=== PATIENT | female | born 1985 | race Caucasian/White ===

== ENCOUNTER 2018-03-18 00:09 | Inpatient (IN) | payer OTHER ==
[2018-03-18] MEDS ORDERED: Sodium Chloride 0.9% 2.5 ML Syringe FLUSH PRN (00:26)
[2018-03-18] MEDS ORDERED: Water For Irrigation,Sterile 1,000 ML Container IRR PRN (00:26)
[2018-03-18] MEDS ORDERED: Methylergonovine 0.2 MG/1 ML Amp IM PRN (00:26)
[2018-03-18] MEDS ORDERED: Tranexamic Acid 1,000 MG in Sodium Chloride 0.9% 100 ML IV PRN (00:26)
[2018-03-18] MEDS ORDERED: Nalbuphine 10 MG/1 ML Vial IVPUSH PRN (00:26)
[2018-03-18] MEDS ORDERED: Terbutaline 1 MG/ML SDV SUBCUT PRN (00:26)
[2018-03-18] MEDS ORDERED: Carboprost Tromethamine 250 MCG/1 ML Amp IM PRN (00:26)
[2018-03-18] MEDS ORDERED: Misoprostol 200 MCG Tab PO PRN (00:26)
[2018-03-18] MEDS ORDERED: Lidocaine 1% 50 ML MDV INJECT PRN (00:26)
[2018-03-18] MEDS ORDERED: Ondansetron 4 MG/2 ML SDV IV PRN (00:26)
[2018-03-18] MEDS ORDERED: Sodium Chloride 0.9% 10 ML Syringe FLUSH PRN (00:26)
[2018-03-18] MEDS ORDERED: Oxytocin/0.9 % Sodium Chloride 30 UNIT/500 ML BAG IV SCH ×2 (00:30)
[2018-03-18] MEDS ORDERED: Vancomycin 1 GM AdvVial ONE (01:48)
[2018-03-18] MEDS ORDERED: Sodium Chloride 0.9% 250 ML ONE (01:50)
[2018-03-18] MEDS: Misoprostol 25 MCG (1/4 of 100 MCG) Tab VAG PRN ×3 (01:50→09:58)
[2018-03-18] MEDS: Lactated Ringers 1,000 ML IV SCH ×2 (02:05→23:45)
[2018-03-18] MEDS: Butorphanol 1 MG/ML SDV IVPUSH PRN ×2 (14:33→16:12)
[2018-03-19] MEDS: Lactated Ringers 1,000 ML IV SCH ×2 (00:39→08:24)
--- NOTE | 2018-03-19 01:03 | PCM.PREANE ---
Preanesthetic Assessment - Anesthesia/Transfusion/Family Hx Anesthesia History: Prior Anesthesia Without Reaction Family History of Anesthesia Reaction: No Transfusion History: No Prior Transfusion(s) - Review of Systems General: No Symptoms Pulmonary: No Symptoms Cardiovascular: No Symptoms Gastrointestinal: No Symptoms Neurological: No Symptoms Other: Reports: None (Denies any personal or family history of bleeding or clotting problems) - Physical Assessment Height: 1.73 m Weight: 102.682 kg ASA Class: 2 Mental Status: Alert & Oriented x3 Airway Class: Mallampati = 2 ROM/Head Extension: Full - Lab Values: Laboratory Last Values WBC 11.78 K/uL (4.0-11.0) H 03/18/18 01:20 RBC 3.86 M/uL (4.30-5.90) L 03/18/18 01:20 Hgb 12.3 g/dL (12.0-16.0) 03/18/18 01:20 Hct 36.6 % (36.0-46.0) 03/18/18 01:20 MCV 94.8 fL (80.0-98.0) 03/18/18 01:20 MCH 31.9 pg (27.0-32.0) 03/18/18 01:20 MCHC 33.6 g/dL (31.0-37.0) 03/18/18 01:20 RDW Std Deviation 48.8 fl (28.0-62.0) 03/18/18 01:20 RDW Coeff of Nadege 15 % (11.0-15.0) 03/18/18 01:20 Plt Count 164 K/uL (150-400) 03/18/18 01:20 MPV 11.60 fL (7.40-12.00) 03/18/18 01:20 Blood Type O NEGATIVE 03/18/18 01:20 Antibody Screen NEGATIVE 03/18/18 01:20 - Allergies Allergies/Adverse Reactions: Allergies Allergy/AdvReac Type Severity Reaction Status Date / Time cat dander Allergy Unknown Cannot Verified 03/18/18 06:21 Remember dog dander Allergy Unknown Cannot Verified 03/18/18 06:21 Remember Penicillins Allergy Unknown Cannot Verified 03/18/18 06:21 Remember - Acknowledgements Anesthesia Type Planned: Epidural Pt an Appropriate Candidate for the Planned Anesthesia: Yes Alternatives and Risks of Anesthesia Discussed w Pt/Guardian: Yes Pt/Guardian Understands and Agrees with Anesthesia Plan: Yes Additional Comments: States has read and signed the anesthesia consent and accepts risks associated with epidural PreAnesthesia Questionnaire Respiratory History: Reports: Asthma [employer] History: Reports: , Other (See Below) Other OB/BYN History: LEEP Psychiatric History: Reports: Anxiety, Depression - Past Surgical History HEENT Surgical History: Reports: Other (See Below) Other HEENT Surgeries/Procedures: [place] teeth extraction - SUBSTANCE USE Smoking Status *Q: Former Smoker Tobacco Use Within Last Twelve Months: No Second Hand Smoke Exposure: No Recreational Drug Use History: No - HOME MEDS Home Medications: Home Meds Albuterol/Ipratropium [Combivent Respimat] 1 puff INH Q6H PRN 03/18/18 [History] Calcium Carbonate [Calcium] 1 tab PO DAILY 03/18/18 [History] Magnesium Oxide 1 tab PO DAILY 03/18/18 [History] Vit W-Ca,Fe,FA(<1 mg) [ Vitamins] 1 each PO DAILY 03/18/18 [ History] Vitamin B Complex 1 cap PO DAILY 03/18/18 [History] valACYclovir HCl [valACYclovir] 1 tab PO DAILY 03/18/18 [History] - CURRENT (IN HOUSE) MEDS Current Meds: Current Medications Butorphanol Tartrate (Stadol) 1 mg IVPUSH Q1H PRN PRN Reason: Pain Last Admin: 03/18/18 16:12 Dose: 1 mg Carboprost Tromethamine (Hemabate Ds) 250 mcg IM ASDIRECTED PRN PRN Reason: Post Hemorrhage Lactated Ringer's (Ringers, Lactated) 1,000 mls @ 150 mls/hr IV ASDIRECTED [facility] Last Admin: 03/19/18 00:39 Dose: 500 mls/hr Oxytocin/Sodium Chloride (Oxytocin 30 Unit/500 Ml-Ns) 30 unit in 500 mls @ 250 mls/hr IV TITRATE [facility] Oxytocin/Sodium Chloride (Oxytocin 30 Unit/500 Ml-Ns) 30 unit in 500 mls @ 2 mls/hr IV TITRATE [facility]; Protocol Last Admin: 03/19/18 00:22 Dose: 2 munits/min, 2 mls/hr Tranexamic Acid 1,000 mg/ (Sodium Chloride) 110 mls @ 660 mls/hr IV ONETIME PRN PRN Reason: Bleeding Vancomycin HCl 1 gm/ Sodium (Chloride) 250 mls @ 250 mls/hr IV Q12H [facility] Last Admin: 03/18/18 14:38 Dose: 250 mls/hr Lidocaine HCl (Xylocaine 1%) 50 ml INJECT ONETIME PRN PRN Reason: Laceration repair Methylergonovine Maleate (Methergine) 0.2 mg IM ASDIRECTED PRN PRN Reason: Post Hemorrhage Misoprostol (Cytotec) 200 mcg PO ONETIME PRN PRN Reason: Post Hemorrhage Misoprostol (Cytotec) 25 mcg VAG Q4H PRN PRN Reason: Cervical Ripening Last Admin: 03/18/18 09:58 Dose: 25 mcg Nalbuphine HCl (Nubain) 10 mg IVPUSH Q1H PRN PRN Reason: Pain (severe 7-10) Ondansetron HCl (Zofran) 4 mg IV Q6H PRN PRN Reason: Nausea/Vomiting Sodium Chloride (Saline Flush) 10 ml FLUSH ASDIRECTED PRN PRN Reason: Keep Vein Open Sodium Chloride (Saline Flush) 2.5 ml FLUSH ASDIRECTED PRN PRN Reason: Keep Vein Open Sterile Water (Sterile Water For Irrigation) 1,000 ml IRR ASDIRECTED PRN PRN Reason: delivery Terbutaline Sulfate (Brethine) 0.25 mg SUBCUT ASDIRECTED PRN PRN Reason: Tacysystole Discontinued Medications Vancomycin HCl 1 gm/ Sodium (Chloride) 250 mls @ 166 mls/hr IV Q12H [facility] Last Admin: 03/18/18 06:22 Dose: Not Given Sodium Chloride (Normal Saline) Confirm Administered Dose 250 mls @ as directed .ROUTE .STK-MED ONE Stop: 03/18/18 01:51 Last Admin: 03/18/18 06:23 Dose: Not Given Fentanyl/Bupivacaine HCl (Zopnmyun-Zdlph-Ul 2 Mcg/Ml-0.125%) Confirm Administered Dose 100 mls @ as directed EP .STK-MED ONE Stop: 03/19/18 00:06 Vancomycin HCl (Vancocin) Confirm Administered Dose 1 gm .ROUTE .STK-MED ONE Stop: 03/18/18 01:49 Last Admin: 03/18/18 02:05 Dose: 1 gm
[2018-03-19] MEDS ORDERED: DEXTROSE 5% IV SCH ×2 (15:29)
[2018-03-19] MEDS ORDERED: WATER IV SCH ×2 (15:29)
[2018-03-19] MEDS ORDERED: GENTAMICIN IV SCH ×2 (15:29)
[2018-03-19] MEDS ORDERED: Bupivacaine 0.5% 10 ML SDV ONE ×2 (15:48→16:33)
[2018-03-19] MEDS ORDERED: Oxytocin/0.9 % Sodium Chloride 30 UNIT/500 ML BAG ONE (15:55)
[2018-03-19] MEDS ORDERED: Sodium Chloride 0.9% 10 ML Syringe FLUSH PRN (16:12)
[2018-03-19] MEDS ORDERED: Citric Acid/Sodium Citrate Solution 30 ML Cup PO ONE (16:12)
[2018-03-19] MEDS ORDERED: Lactated Ringers 1,000 ML IV SCH ×2 (16:15→18:30)
[2018-03-19] MEDS ORDERED: Oxytocin/0.9 % Sodium Chloride 30 UNIT/500 ML BAG IV SCH (16:15)
[2018-03-19] MEDS ORDERED: Midazolam 1 MG/ML 2 ML SDV ONE (16:52)
[2018-03-19] MEDS ORDERED: Morphine PF 1 MG/ML Amp ONE (16:53)
[2018-03-19] MEDS ORDERED: Phenylephrine/Normal Saline 100 MCG/ML 10 ML Syringe ONE (17:10)
[2018-03-19] MEDS ORDERED: Methylergonovine 0.2 MG/1 ML Amp ONE (17:12)
[2018-03-19] MEDS ORDERED: diphenhydrAMINE 50 MG/ML SDV IVPUSH PRN ×2 (17:17→18:18)
[2018-03-19] MEDS ORDERED: Naloxone 0.4 MG/ML Syringe IVPUSH PRN (17:17)
[2018-03-19] MEDS ORDERED: Nalbuphine 10 MG/1 ML Vial IVPUSH PRN (17:17)
[2018-03-19] MEDS ORDERED: fentaNYL 100 MCG/2 ML SDV ONE (17:17)
[2018-03-19] MEDS ORDERED: diphenhydrAMINE 50 MG/ML SDV ONE (17:34)
[2018-03-19] MEDS ORDERED: Ondansetron 4 MG/2 ML SDV ONE (17:34)
[2018-03-19] MEDS ORDERED: Dexamethasone 4 MG/ML 5 ML MDV ONE (17:34)
[2018-03-19] MEDS ORDERED: Ondansetron 4 MG/2 ML SDV IV PRN (18:18)
[2018-03-19] MEDS ORDERED: Bisacodyl 10 MG Supp RECTAL PRN (18:18)
[2018-03-19] MEDS ORDERED: Acetaminophen/oxyCODONE 325-5 MG Tab PO PRN (18:18)
--- NOTE | 2018-03-19 18:26 | PCM.POSTAN ---
POST ANESTHESIA ASSESSMENT - MENTAL STATUS Mental Status: Alert, Oriented - RESPIRATORY Respiratory Status: Respiratory Rate WNL, Airway Patent, O2 Saturation Stable - CARDIOVASCULAR CV Status: Pulse Rate WNL, Blood Pressure Stable - GASTROINTESTINAL GI Status: No Symptoms - PAIN Pain Score: 0 - POST OP HYDRATION Hydration Status: Adequate & Stable
--- NOTE | 2018-03-19 18:29 | PCM.DEL ---
L & D Note - General Info Date of Service: 03/19/18 - Delivery Note Labor: Induced by Oxytocin Cervical Ripening Method: Balloon Device, Misoprostil Delivery Outcome: Livebirth Infant Delivery Method: Primary Presentation: Transverse Nuchal Cord: None Anesthesia Type: Epidural Amniotic Fluid Description: Clear Episiotomy Type: None : Bulb Syringe Score 1 min: 8 Score 5 min: 9 Delivery Comments (Free Text/Narrative):: Live female delivered at 5.03pm , 8/9 weight ; 3920g - General Info Date of Service: 03/19/18 - Patient Data Vitals - Most Recent: Last Vital Signs Temp 37.1 C 03/19/18 17:57 Pulse 83 03/19/18 18:17 Resp 13 03/19/18 18:17 BP 126/76 03/19/18 18:17 Pulse Ox 95 03/19/18 18:17 Weight - Most Recent: 102.682 kg I&O - Last 24 Hours: Intake & Output 03/19/18 03/19/18 03/19/18 06:59 14:59 22:59 Output Total 200 Balance -200 Lab Results Last 24 Hours: Laboratory Results - last 24 hr 03/18/18 Range/Units 01:20 Blood Type O NEGATIVE Antibody Screen NEGATIVE Crossmatch See Detail Med Orders - Current: Current Medications Bisacodyl (Dulcolax) 10 mg RECTAL ONETIME PRN PRN Reason: Constipation Butorphanol Tartrate (Stadol) 1 mg IVPUSH Q1H PRN PRN Reason: Pain Last Admin: 03/18/18 16:12 Dose: 1 mg Carboprost Tromethamine (Hemabate Ds) 250 mcg IM ASDIRECTED PRN PRN Reason: Post Hemorrhage Diphenhydramine HCl (Benadryl) 25 mg IVPUSH Q4H PRN PRN Reason: Itching Stop: 03/20/18 17:17 Diphenhydramine HCl (Benadryl) 25 mg IVPUSH Q6H PRN PRN Reason: Itching or Nausea Docusate Sodium (Colace) 100 mg PO BID [facility] Emollient Ointment (Lansinoh Hpa) 0 gm TOP ASDIRECTED PRN PRN Reason: Sore Nipples Lactated Ringer's (Ringers, Lactated) 1,000 mls @ 150 mls/hr IV ASDIRECTED [facility] Last Admin: 03/19/18 08:24 Dose: 125 mls/hr Oxytocin/Sodium Chloride (Oxytocin 30 Unit/500 Ml-Ns) 30 unit in 500 mls @ 250 mls/hr IV TITRATE [facility] Oxytocin/Sodium Chloride (Oxytocin 30 Unit/500 Ml-Ns) 30 unit in 500 mls @ 2 mls/hr IV TITRATE [facility]; Protocol Last Titration: 03/19/18 15:20 Dose: 0 munits/min, 0 mls/hr Tranexamic Acid 1,000 mg/ (Sodium Chloride) 110 mls @ 660 mls/hr IV ONETIME PRN PRN Reason: Bleeding Vancomycin HCl 1 gm/ Sodium (Chloride) 250 mls @ 250 mls/hr IV Q12H [facility] Last Admin: 03/19/18 02:08 Dose: 250 mls/hr Gentamicin Sulfate 100 mg/ (Dextrose/Water) 52.5 mls @ 105 mls/hr IV ONCALL [facility] Oxytocin/Sodium Chloride (Oxytocin 30 Unit/500 Ml-Ns) 30 unit in 500 mls @ 250 mls/hr IV TITRATE [facility] Lactated Ringer's (Ringers, Lactated) 1,000 mls @ 500 mls/hr IV BOLUS [facility] Lactated Ringer's (Ringers, Lactated) 1,000 mls @ 125 mls/hr IV ASDIRECTED [facility] Ibuprofen (Motrin) 800 mg PO Q8H PRN PRN Reason: mild pain or fever Ketorolac Tromethamine (Toradol) 30 mg IVPUSH Q6H [facility] Stop: 03/20/18 18:31 Lidocaine HCl (Xylocaine 1%) 50 ml INJECT ONETIME PRN PRN Reason: Laceration repair Methylergonovine Maleate (Methergine) 0.2 mg IM ASDIRECTED PRN PRN Reason: Post Hemorrhage Misoprostol (Cytotec) 200 mcg PO ONETIME PRN PRN Reason: Post Hemorrhage Misoprostol (Cytotec) 25 mcg VAG Q4H PRN PRN Reason: Cervical Ripening Last Admin: 03/18/18 09:58 Dose: 25 mcg Nalbuphine HCl (Nubain) 5 mg IVPUSH Q3H PRN PRN Reason: Pruritis Stop: 03/20/18 17:17 Naloxone HCl (Narcan) 0.1 mg IVPUSH ONETIME PRN PRN Reason: Respiratory Depression Stop: 03/20/18 17:17 Ondansetron HCl (Zofran) 4 mg IV Q6H PRN PRN Reason: Nausea/Vomiting Ondansetron HCl (Zofran) 4 mg IV Q4H PRN PRN Reason: Nausea/Vomiting Oxycodone/Acetaminophen (Percocet 325-5 Mg) 1 tab PO Q4H PRN PRN Reason: Pain (moderate 4-6) Oxycodone/Acetaminophen (Percocet 325-5 Mg) 2 tab PO Q4H PRN PRN Reason: Pain (moderate 4-6) Sodium Chloride (Saline Flush) 10 ml FLUSH ASDIRECTED PRN PRN Reason: Keep Vein Open Sodium Chloride (Saline Flush) 2.5 ml FLUSH ASDIRECTED PRN PRN Reason: Keep Vein Open Sodium Chloride (Saline Flush) 10 ml FLUSH ASDIRECTED PRN PRN Reason: Keep Vein Open Sterile Water (Sterile Water For Irrigation) 1,000 ml IRR ASDIRECTED PRN PRN Reason: delivery Discontinued Medications Bupivacaine HCl (Sensorcaine-Mpf 0.5%) Confirm Administered Dose 20 ml .ROUTE .STK-MED ONE Stop: 03/19/18 15:49 Bupivacaine HCl (Sensorcaine-Mpf 0.5%) Confirm Administered Dose 20 ml .ROUTE .STK-MED ONE Stop: 03/19/18 16:34 Citric Acid/Sodium Citrate (Bicitra Solution) 30 ml PO ONETIME ONE Stop: 03/19/18 16:13 Dexamethasone (Dexamethasone) Confirm Administered Dose 20 mg .ROUTE .STK-MED ONE Stop: 03/19/18 17:35 Diphenhydramine HCl (Benadryl) Confirm Administered Dose 50 mg .ROUTE .STK-MED ONE Stop: 03/19/18 17:35 Fentanyl (Sublimaze) Confirm Administered Dose 100 mcg .ROUTE .STK-MED ONE Stop: 03/19/18 17:18 Vancomycin HCl 1 gm/ Sodium (Chloride) 250 mls @ 166 mls/hr IV Q12H [facility] Last Admin: 03/19/18 02:08 Dose: 250 mls/hr Sodium Chloride (Normal Saline) Confirm Administered Dose 250 mls @ as directed .ROUTE .STK-MED ONE Stop: 03/18/18 01:51 Last Admin: 03/18/18 06:23 Dose: Not Given Fentanyl/Bupivacaine HCl (Krtegfpi-Rozry-If 2 Mcg/Ml-0.125%) Confirm Administered Dose 100 mls @ as directed EP .STK-MED ONE Stop: 03/19/18 00:06 Fentanyl/Bupivacaine HCl (Nazxerhx-Mdycv-On 2 Mcg/Ml-0.125%) Confirm Administered Dose 100 mls @ as directed EP .STK-MED ONE Stop: 03/19/18 11:14 Oxytocin/Sodium Chloride (Oxytocin 30 Unit/500 Ml-Ns) Confirm Administered Dose 30 unit in 500 mls @ as directed .ROUTE .STK-MED ONE Stop: 03/19/18 15:56 Methylergonovine Maleate (Methergine) Confirm Administered Dose 0.2 mg .ROUTE .STK-MED ONE Stop: 03/19/18 17:13 Midazolam HCl (Versed 1 Mg/Ml) Confirm Administered Dose 2 mg .ROUTE .STK-MED ONE Stop: 03/19/18 16:53 Morphine Sulfate (Duramorph Pf) Confirm Administered Dose 1 mg .ROUTE .STK-MED ONE Stop: 03/19/18 16:54 Nalbuphine HCl (Nubain) 10 mg IVPUSH Q1H PRN PRN Reason: Pain (severe 7-10) Ondansetron HCl (Zofran) Confirm Administered Dose 4 mg .ROUTE .STK-MED ONE Stop: 03/19/18 17:35 Phenylephrine HCl (Phenylephrine In Ns 100 Mcg/Ml) Confirm Administered Dose 1 mg .ROUTE .STK-MED ONE Stop: 03/19/18 17:11 Terbutaline Sulfate (Brethine) 0.25 mg SUBCUT ASDIRECTED PRN PRN Reason: Tacysystole Vancomycin HCl (Vancocin) Confirm Administered Dose 1 gm .ROUTE .STK-MED ONE Stop: 03/18/18 01:49 Last Admin: 03/18/18 02:05 Dose: 1 gm - Problem List & Annotations (1) delivery delivered SNOMED Code(s): 628958418 Code(s): O82 - ENCOUNTER FOR DELIVERY WITHOUT INDICATION Status: Acute Current Visit: Yes - Problem List Review Problem List Initiated/Reviewed/Updated: Yes - My Orders Last 24 Hours: My Active Orders 03/19/18 15:29 Gentamicin 100 mg Dextrose 5% in Water 50 ml IV ONCALL 03/19/18 16:12 Patient Status [ADT] Routine Non Stress Test [RC] PER UNIT ROUTINE Procedure Site Prep Instruct [RC] ASDIRECTED Up ad Isabel [RC] ASDIRECTED Verify Patient Consent Obtain [RC] ASDIRECTED Vital Signs [RC] PER UNIT ROUTINE Sodium Chloride 0.9% [Saline Flush] 10 ml FLUSH ASDIRECTED PRN Peripheral IV Insertion Adult [OM.PC] Routine Schedule Procedure [COMM] Per Unit Routine 03/19/18 16:15 Lactated Ringers [Ringers, Lactated] 1,000 ml IV BOLUS Oxytocin/0.9 % Sodium Chloride [Oxytocin 30 Unit/500 ML-NS] 30 unit in 500 ml IV TITRATE 03/19/18 16:20 Notify Provider Vital Signs [RC] PRN 03/19/18 18:18 Notify Provider Intake and Out [RC] ASDIRECTED Notify Provider Vital Signs [RC] ASDIRECTED RHIG WORKUP, [BBK] Routine Acetaminophen/oxyCODONE [Percocet 325-5 MG] 1 tab PO Q4H PRN Acetaminophen/oxyCODONE [Percocet 325-5 MG] 2 tab PO Q4H PRN Bisacodyl [Dulcolax] 10 mg RECTAL ONETIME PRN Ibuprofen [Motrin] 800 mg PO Q8H PRN Lanolin [Lansinoh HPA] See Dose Instructions TOP ASDIRECTED PRN Ondansetron [Zofran] 4 mg IV Q4H PRN diphenhydrAMINE [Benadryl] 25 mg IVPUSH Q6H PRN Resuscitation Status Routine 03/19/18 18:20 Patient Status [ADT] Routine Ambulate [RC] PER UNIT ROUTINE Communication Order [RC] PER UNIT ROUTINE Communication Order [RC] PER UNIT ROUTINE Communication Order [RC] Per Unit Routine May Shower [RC] ASDIRECTED RT Incentive Spirometry [RC] Q2HWA Vital Signs [RC] PER UNIT ROUTINE Assess Lochia [WOMSER] Per Unit Routine Assess Uterine Involution [WOMSER] Per Unit Routine Breast Pump [WOMSER] Per Unit Routine Peripheral IV Discontinue [OM.PC] Routine Sequential Compression Device [OM.PC] Per Unit Routine 03/19/18 18:21 Abdominal Binder [OM.PC] Per Unit Routine 03/19/18 18:30 Ketorolac [Toradol] 30 mg IVPUSH Q6H Lactated Ringers @ 125 MLS/HR(1000ml) Lactated Ringers [Ringers, Lactated] 1, 000 ml IV ASDIRECTED 03/19/18 21:00 Docusate Sodium [Colace] 100 mg PO BID 03/19/18 Breakfast Regular Diet [DIET] 03/20/18 05:11 HEMOGLOBIN/HEMATOCRIT,HH [HEME] Timed
--- NOTE | 2018-03-19 18:38 | PCM.OPNOTE ---
- General Post-Op/Procedure Note Date of Surgery/Procedure: 03/19/18 Operative Procedure(s): Primary lower transverse Pre Op Diagnosis: 32 yo @ 41w0d Failed induction of labor , GBS positive Post-Op Diagnosis: same Anesthesia Technique: Epidural Primary Surgeon: Steven Palma Pathology: Placenta Fluid Replacement, Intraop: 1,100 Output, Urine Amount: 250 EBL in mLs: 1,200 Complications: None Condition: Good Free Text/Narrative:: Intake & Output 03/19/18 03/19/18 03/19/18 06:59 14:59 22:59 Output Total 200 Balance -200 Live female delivered at 503pm , Wt 3920g , 8/9
[2018-03-19] MEDS: Ketorolac 30 MG/ML SDV IVPUSH SCH (19:30)
[2018-03-19] MEDS: Lanolin 100% Cream 7 GM Tube TOP PRN (20:12)
[2018-03-19] MEDS: Docusate Sodium 100 MG Cap PO SCH (20:13)
[2018-03-20] MEDS: Lactated Ringers 1,000 ML IV SCH (01:00)
[2018-03-20] MEDS: Ketorolac 30 MG/ML SDV IVPUSH SCH ×4 (01:22→19:30)
--- NOTE | 2018-03-20 05:18 | PCM48HPAN ---
Post Anesthesia Note - EVALUATION WITHIN 48HRS OF ANESTHETIC Vital Signs in Normal Range: Yes Patient Participated in Evaluation: Yes Respiratory Function Stable: Yes Airway Patent: Yes Cardiovascular Function Stable: Yes Hydration Status Stable: Yes Pain Control Satisfactory: Yes Nausea and Vomiting Control Satisfactory: Yes Mental Status Recovered: Yes Resp Rate: 16
--- NOTE | 2018-03-20 08:15 | PCM.PNPP ---
- General Info Date of Service: 03/20/18 Functional Status: Reports: Pain Controlled, Tolerating Diet, Ambulating, Urinating - Review of Systems General: Denies: Fever HEENT: Denies: Headaches Pulmonary: Denies: Shortness of Breath, Pleuritic Chest Pain, Cough Cardiovascular: Denies: Chest Pain, Palpitations, Dyspnea on Exertion Gastrointestinal: Denies: Abdominal Pain Genitourinary: Denies: Flank Pain - General Info Date of Service: 03/20/18 - Patient Data Vital Signs - Most Recent: Last Vital Signs Temp 36.1 C 03/20/18 00:00 Pulse 92 03/20/18 07:00 Resp 18 03/20/18 07:00 BP 129/76 03/20/18 00:00 Pulse Ox 97 03/20/18 07:00 Weight - Most Recent: 226 lb 6.001 oz I&O - Last 24 Hours: Intake & Output 03/19/18 03/20/18 03/20/18 22:59 06:59 14:59 Intake Total 3150 1650 Output Total 570 1550 Balance 2580 100 Lab Results - Last 24 Hours: Laboratory Results - last 24 hr 03/18/18 03/19/18 03/20/18 Range/Units 01:20 17:03 06:00 Hgb 9.3 L (12.0-16.0) g/dL Hct 28.0 L (36.0-46.0) % Blood Type O NEGATIVE Antibody Screen NEGATIVE Rhogam Indicated NO, MOM+BABY RH NEG Crossmatch See Detail Med Orders - Current: Current Medications Bisacodyl (Dulcolax) 10 mg RECTAL ONETIME PRN PRN Reason: Constipation Butorphanol Tartrate (Stadol) 1 mg IVPUSH Q1H PRN PRN Reason: Pain Last Admin: 03/18/18 16:12 Dose: 1 mg Carboprost Tromethamine (Hemabate Ds) 250 mcg IM ASDIRECTED PRN PRN Reason: Post Hemorrhage Diphenhydramine HCl (Benadryl) 25 mg IVPUSH Q4H PRN PRN Reason: Itching Stop: 03/20/18 17:17 Diphenhydramine HCl (Benadryl) 25 mg IVPUSH Q6H PRN PRN Reason: Itching or Nausea Docusate Sodium (Colace) 100 mg PO BID [facility] Last Admin: 03/19/18 20:13 Dose: 100 mg Emollient Ointment (Lansinoh Hpa) 0 gm TOP ASDIRECTED PRN PRN Reason: Sore Nipples Last Admin: 03/19/18 20:12 Dose: 1 applic Lactated Ringer's (Ringers, Lactated) 1,000 mls @ 150 mls/hr IV ASDIRECTED [facility] Last Admin: 03/20/18 01:00 Dose: 125 mls/hr Oxytocin/Sodium Chloride (Oxytocin 30 Unit/500 Ml-Ns) 30 unit in 500 mls @ 250 mls/hr IV TITRATE [facility] Oxytocin/Sodium Chloride (Oxytocin 30 Unit/500 Ml-Ns) 30 unit in 500 mls @ 2 mls/hr IV TITRATE [facility]; Protocol Last Titration: 03/19/18 15:20 Dose: 0 munits/min, 0 mls/hr Tranexamic Acid 1,000 mg/ (Sodium Chloride) 110 mls @ 660 mls/hr IV ONETIME PRN PRN Reason: Bleeding Vancomycin HCl 1 gm/ Sodium (Chloride) 250 mls @ 250 mls/hr IV Q12H [facility] Last Admin: 03/19/18 02:08 Dose: 250 mls/hr Gentamicin Sulfate 100 mg/ (Dextrose/Water) 52.5 mls @ 105 mls/hr IV ONCALL [facility] Oxytocin/Sodium Chloride (Oxytocin 30 Unit/500 Ml-Ns) 30 unit in 500 mls @ 250 mls/hr IV TITRATE [facility] Lactated Ringer's (Ringers, Lactated) 1,000 mls @ 500 mls/hr IV BOLUS [facility] Lactated Ringer's (Ringers, Lactated) 1,000 mls @ 125 mls/hr IV ASDIRECTED [facility] Ibuprofen (Motrin) 800 mg PO Q8H PRN PRN Reason: mild pain or fever Ketorolac Tromethamine (Toradol) 30 mg IVPUSH Q6H [facility] Stop: 03/20/18 19:31 Last Admin: 03/20/18 07:46 Dose: 30 mg Lidocaine HCl (Xylocaine 1%) 50 ml INJECT ONETIME PRN PRN Reason: Laceration repair Methylergonovine Maleate (Methergine) 0.2 mg IM ASDIRECTED PRN PRN Reason: Post Hemorrhage Misoprostol (Cytotec) 200 mcg PO ONETIME PRN PRN Reason: Post Hemorrhage Misoprostol (Cytotec) 25 mcg VAG Q4H PRN PRN Reason: Cervical Ripening Last Admin: 03/18/18 09:58 Dose: 25 mcg Nalbuphine HCl (Nubain) 5 mg IVPUSH Q3H PRN PRN Reason: Pruritis Stop: 03/20/18 17:17 Naloxone HCl (Narcan) 0.1 mg IVPUSH ONETIME PRN PRN Reason: Respiratory Depression Stop: 03/20/18 17:17 Ondansetron HCl (Zofran) 4 mg IV Q6H PRN PRN Reason: Nausea/Vomiting Ondansetron HCl (Zofran) 4 mg IV Q4H PRN PRN Reason: Nausea/Vomiting Oxycodone/Acetaminophen (Percocet 325-5 Mg) 1 tab PO Q4H PRN PRN Reason: Pain (moderate 4-6) Oxycodone/Acetaminophen (Percocet 325-5 Mg) 2 tab PO Q4H PRN PRN Reason: Pain (moderate 4-6) Sodium Chloride (Saline Flush) 10 ml FLUSH ASDIRECTED PRN PRN Reason: Keep Vein Open Sodium Chloride (Saline Flush) 2.5 ml FLUSH ASDIRECTED PRN PRN Reason: Keep Vein Open Sodium Chloride (Saline Flush) 10 ml FLUSH ASDIRECTED PRN PRN Reason: Keep Vein Open Sterile Water (Sterile Water For Irrigation) 1,000 ml IRR ASDIRECTED PRN PRN Reason: delivery Discontinued Medications Bupivacaine HCl (Sensorcaine-Mpf 0.5%) Confirm Administered Dose 20 ml .ROUTE .STK-MED ONE Stop: 03/19/18 15:49 Bupivacaine HCl (Sensorcaine-Mpf 0.5%) Confirm Administered Dose 20 ml .ROUTE .STK-MED ONE Stop: 03/19/18 16:34 Citric Acid/Sodium Citrate (Bicitra Solution) 30 ml PO ONETIME ONE Stop: 03/19/18 16:13 Dexamethasone (Dexamethasone) Confirm Administered Dose 20 mg .ROUTE .STK-MED ONE Stop: 03/19/18 17:35 Diphenhydramine HCl (Benadryl) Confirm Administered Dose 50 mg .ROUTE .STK-MED ONE Stop: 03/19/18 17:35 Fentanyl (Sublimaze) Confirm Administered Dose 100 mcg .ROUTE .STK-MED ONE Stop: 03/19/18 17:18 Vancomycin HCl 1 gm/ Sodium (Chloride) 250 mls @ 166 mls/hr IV Q12H [facility] Last Admin: 03/19/18 02:08 Dose: 250 mls/hr Sodium Chloride (Normal Saline) Confirm Administered Dose 250 mls @ as directed .ROUTE .STK-MED ONE Stop: 03/18/18 01:51 Last Admin: 03/18/18 06:23 Dose: Not Given Fentanyl/Bupivacaine HCl (Gepxwwsf-Spsac-Ek 2 Mcg/Ml-0.125%) Confirm Administered Dose 100 mls @ as directed EP .STK-MED ONE Stop: 03/19/18 00:06 Fentanyl/Bupivacaine HCl (Juwmhlzl-Kjywd-Yt 2 Mcg/Ml-0.125%) Confirm Administered Dose 100 mls @ as directed EP .STK-MED ONE Stop: 03/19/18 11:14 Oxytocin/Sodium Chloride (Oxytocin 30 Unit/500 Ml-Ns) Confirm Administered Dose 30 unit in 500 mls @ as directed .ROUTE .STK-MED ONE Stop: 03/19/18 15:56 Methylergonovine Maleate (Methergine) Confirm Administered Dose 0.2 mg .ROUTE .STK-MED ONE Stop: 03/19/18 17:13 Midazolam HCl (Versed 1 Mg/Ml) Confirm Administered Dose 2 mg .ROUTE .STK-MED ONE Stop: 03/19/18 16:53 Morphine Sulfate (Duramorph Pf) Confirm Administered Dose 1 mg .ROUTE .STK-MED ONE Stop: 03/19/18 16:54 Nalbuphine HCl (Nubain) 10 mg IVPUSH Q1H PRN PRN Reason: Pain (severe 7-10) Ondansetron HCl (Zofran) Confirm Administered Dose 4 mg .ROUTE .STK-MED ONE Stop: 03/19/18 17:35 Phenylephrine HCl (Phenylephrine In Ns 100 Mcg/Ml) Confirm Administered Dose 1 mg .ROUTE .STK-MED ONE Stop: 03/19/18 17:11 Terbutaline Sulfate (Brethine) 0.25 mg SUBCUT ASDIRECTED PRN PRN Reason: Tacysystole Vancomycin HCl (Vancocin) Confirm Administered Dose 1 gm .ROUTE .STK-MED ONE Stop: 03/18/18 01:49 Last Admin: 03/18/18 02:05 Dose: 1 gm - Infant Interaction Disposition, : at Bedside Feeding: Attempted ; Nursed Fair/Poor, Breastfed ; Nursed Well, Continues to Breastfeed Support Person: - Recovery Exam Fundal Tone: Firm Fundal Level: At Umbilicus Fundal Placement: Midline Lochia Amount: Scant Lochia Color: Rubra/Red Perineum Description: Intact, Minimal Bruising/Swelling Episiotomy/Laceration: None Bladder Status: Indwelling Catheter in Place Urinary Elimination: Indwelling Catheter - Exam General: Alert, Oriented Lungs: Clear to Auscultation, Normal Respiratory Effort Cardiovascular: Regular Rate, Regular Rhythm GI/Abdominal Exam: Normal Bowel Sounds Extremities: Non-Tender, Pedal Edema Wound/Incisions: Dressing Dry and Intact Psy/Mental Status: Alert, Normal Affect, Normal Mood - Problem List & Annotations (1) delivery delivered SNOMED Code(s): 139127414 Code(s): O82 - ENCOUNTER FOR DELIVERY WITHOUT INDICATION Status: Acute Current Visit: Yes - Problem List Review Problem List Initiated/Reviewed/Updated: Yes - Assessment Assessment:: PPD#1 s/p Primary C-s ection for failed IOL Stable and afebrile - Plan Plan:: Continue routine care and aim for discharge tomorrow
--- NOTE | 2018-03-20 14:21 | OR ---
SURGEON: HAL JONES DATE OF PROCEDURE: PREOPERATIVE DIAGNOSES: A 32-year-old G1, P0, at 41 weeks and 0 days, failed induction of labor. GBS positive. POSTOPERATIVE DIAGNOSES: A 32-year-old G1, P0, at 41 weeks and 0 days, failed induction of labor. GBS positive. PROCEDURE: Primary low-transverse section. ANESTHESIA: Epidural. ESTIMATED BLOOD LOSS: 1200. IV FLUIDS: 1100. URINE OUTPUT: 250. FINDINGS: A live female delivered at 5:03 p.m. scores 8 and 9. Weight was 3920 g. BRIEF HISTORY ABOUT THE PATIENT: She is a 32-year-old G1, P0, at 41 weeks 0 days, who came in for induction of labor for post dates. The patient started induction of labor with Cytotec. She received x3 doses of Cytotec. She was still ft/l/p . As a result, a Moore balloon was placed in. The Moore balloon stayed in for about 12 hours. Pitocin was started. The Moore bulb was removed. She was 3 cm to 4 cm dilated. She was ruptured. Pitocin was titrated up Pitocin was on about 10 hours. She made no cervical change. At this point, patient was counselled for for failed induction of labor. She understood the risks, benefits, alternatives, and she decided to proceed and she signed the consent. PROCEDURE IN DETAIL: The patient was taken to the operating room where epidural anesthesia was performed without difficulty. She was prepared and draped in the normal supine position with a leftward tilt. A Pfannenstiel skin incision was made with a scalpel and carried down to the fascia with the Bovie. The fascia was incised and extended laterally. The fascia was from the rectus muscles superiorly and inferiorly. The rectus muscles were then in the midline down to the level of the pubic symphysis. The peritoneum was entered bluntly and the lower uterine segment was seen. The Mendoza O retractor was placed to expose the lower uterine segment. The bladder flap was created. The uterine incision was made. The placenta was noted to be anterior. The in the pelvis . The fundal pressure was then made, then an anterior shoulder and posterior shoulder was delivered. The nose of the baby was suctioned. The cord was clamped and cut. Cord blood gases were obtained. The was handed over to the awaiting mine supervisor. The placenta was delivered. The uterus was then cleaned with moist laparotomy sponges. Additional methergine was given because of uterine atony. Then, the incision was closed in 2 layers, first with 0 Vicryl and second layer with 0 Monocryl. The gutters were cleaned and the peritoneum was closed with 2-0 Vicryl. The fascia was then closed with 0 Vicryl. The subcutaneous fat was closed and the skin was closed with 4-0 Monocryl on a Obie needle. All instrument and pad counts were correct x2. The patient was taken to the recovery room in stable condition. CIERRA HENRY /[id number] MTDD
[2018-03-20] MEDS: Lanolin 100% Cream 7 GM Tube TOP PRN (23:10)
[2018-03-20] MEDS: Docusate Sodium 100 MG Cap PO SCH (23:11)
[2018-03-21] MEDS: Ibuprofen 800 MG Tab PO PRN ×3 (05:28→21:04)
[2018-03-21] MEDS: Docusate Sodium 100 MG Cap PO SCH ×3 (08:06→22:29)
[2018-03-21] MEDS: Acetaminophen/oxyCODONE 325-5 MG Tab PO PRN ×3 (08:07→21:43)
--- NOTE | 2018-03-21 10:10 | PCM.PNPP ---
- General Info Date of Service: 03/21/18 Functional Status: Reports: Pain Controlled, Tolerating Diet, Ambulating, Urinating - Review of Systems General: Denies: Fever HEENT: Denies: Headaches Pulmonary: Denies: Shortness of Breath, Pleuritic Chest Pain Cardiovascular: Denies: Chest Pain, Palpitations, Dyspnea on Exertion Gastrointestinal: Reports: Abdominal Pain (incisional pain/tenderness) Genitourinary: Denies: Dysuria, Incontinence, Flank Pain Psychiatric: Denies: Confusion, Depression, Mood Lability, Anxiety - General Info Date of Service: 03/21/18 - Patient Data Vital Signs - Most Recent: Last Vital Signs Temp 36.3 C 03/21/18 07:40 Pulse 90 03/21/18 07:40 Resp 12 03/21/18 07:40 BP 110/62 03/21/18 07:40 Pulse Ox 96 03/21/18 07:40 Weight - Most Recent: 226 lb 6.001 oz I&O - Last 24 Hours: Intake & Output 03/20/18 03/21/18 03/21/18 22:59 06:59 14:59 Output Total 400 Balance -400 Med Orders - Current: Current Medications Bisacodyl (Dulcolax) 10 mg RECTAL ONETIME PRN PRN Reason: Constipation Butorphanol Tartrate (Stadol) 1 mg IVPUSH Q1H PRN PRN Reason: Pain Last Admin: 03/18/18 16:12 Dose: 1 mg Carboprost Tromethamine (Hemabate Ds) 250 mcg IM ASDIRECTED PRN PRN Reason: Post Hemorrhage Diphenhydramine HCl (Benadryl) 25 mg IVPUSH Q6H PRN PRN Reason: Itching or Nausea Docusate Sodium (Colace) 100 mg PO BID [facility] Last Admin: 03/21/18 08:06 Dose: 100 mg Emollient Ointment (Lansinoh Hpa) 0 gm TOP ASDIRECTED PRN PRN Reason: Sore Nipples Last Admin: 03/20/18 23:10 Dose: 1 applic Lactated Ringer's (Ringers, Lactated) 1,000 mls @ 150 mls/hr IV ASDIRECTED [facility] Last Admin: 03/20/18 01:00 Dose: 125 mls/hr Oxytocin/Sodium Chloride (Oxytocin 30 Unit/500 Ml-Ns) 30 unit in 500 mls @ 250 mls/hr IV TITRATE BLAISE Oxytocin/Sodium Chloride (Oxytocin 30 Unit/500 Ml-Ns) 30 unit in 500 mls @ 2 mls/hr IV TITRATE BLAIES; Protocol Last Titration: 03/19/18 15:20 Dose: 0 munits/min, 0 mls/hr Tranexamic Acid 1,000 mg/ (Sodium Chloride) 110 mls @ 660 mls/hr IV ONETIME PRN PRN Reason: Bleeding Gentamicin Sulfate 100 mg/ (Dextrose/Water) 52.5 mls @ 105 mls/hr IV ONCALL BLAISE Oxytocin/Sodium Chloride (Oxytocin 30 Unit/500 Ml-Ns) 30 unit in 500 mls @ 250 mls/hr IV TITRATE BLAISE Lactated Ringer's (Ringers, Lactated) 1,000 mls @ 500 mls/hr IV BOLUS BLAISE Lactated Ringer's (Ringers, Lactated) 1,000 mls @ 125 mls/hr IV ASDIRECTED BLAISE Ibuprofen (Motrin) 800 mg PO Q8H PRN PRN Reason: mild pain or fever Last Admin: 03/21/18 05:28 Dose: 800 mg Lidocaine HCl (Xylocaine 1%) 50 ml INJECT ONETIME PRN PRN Reason: Laceration repair Methylergonovine Maleate (Methergine) 0.2 mg IM ASDIRECTED PRN PRN Reason: Post Hemorrhage Misoprostol (Cytotec) 200 mcg PO ONETIME PRN PRN Reason: Post Hemorrhage Misoprostol (Cytotec) 25 mcg VAG Q4H PRN PRN Reason: Cervical Ripening Last Admin: 03/18/18 09:58 Dose: 25 mcg Ondansetron HCl (Zofran) 4 mg IV Q6H PRN PRN Reason: Nausea/Vomiting Ondansetron HCl (Zofran) 4 mg IV Q4H PRN PRN Reason: Nausea/Vomiting Oxycodone/Acetaminophen (Percocet 325-5 Mg) 1 tab PO Q4H PRN PRN Reason: Pain (moderate 4-6) Last Admin: 03/21/18 08:07 Dose: 1 tab Oxycodone/Acetaminophen (Percocet 325-5 Mg) 2 tab PO Q4H PRN PRN Reason: Pain (moderate 4-6) Sodium Chloride (Saline Flush) 10 ml FLUSH ASDIRECTED PRN PRN Reason: Keep Vein Open Sodium Chloride (Saline Flush) 2.5 ml FLUSH ASDIRECTED PRN PRN Reason: Keep Vein Open Sodium Chloride (Saline Flush) 10 ml FLUSH ASDIRECTED PRN PRN Reason: Keep Vein Open Sterile Water (Sterile Water For Irrigation) 1,000 ml IRR ASDIRECTED PRN PRN Reason: delivery Discontinued Medications Bupivacaine HCl (Sensorcaine-Mpf 0.5%) Confirm Administered Dose 20 ml .ROUTE .STK-MED ONE Stop: 03/19/18 15:49 Bupivacaine HCl (Sensorcaine-Mpf 0.5%) Confirm Administered Dose 20 ml .ROUTE .STK-MED ONE Stop: 03/19/18 16:34 Citric Acid/Sodium Citrate (Bicitra Solution) 30 ml PO ONETIME ONE Stop: 03/19/18 16:13 Dexamethasone (Dexamethasone) Confirm Administered Dose 20 mg .ROUTE .STK-MED ONE Stop: 03/19/18 17:35 Diphenhydramine HCl (Benadryl) 25 mg IVPUSH Q4H PRN PRN Reason: Itching Stop: 03/20/18 17:17 Diphenhydramine HCl (Benadryl) Confirm Administered Dose 50 mg .ROUTE .STK-MED ONE Stop: 03/19/18 17:35 Fentanyl (Sublimaze) Confirm Administered Dose 100 mcg .ROUTE .STK-MED ONE Stop: 03/19/18 17:18 Vancomycin HCl 1 gm/ Sodium (Chloride) 250 mls @ 166 mls/hr IV Q12H [facility] Last Admin: 03/19/18 02:08 Dose: 250 mls/hr Sodium Chloride (Normal Saline) Confirm Administered Dose 250 mls @ as directed .ROUTE .STK-MED ONE Stop: 03/18/18 01:51 Last Admin: 03/18/18 06:23 Dose: Not Given Vancomycin HCl 1 gm/ Sodium (Chloride) 250 mls @ 250 mls/hr IV Q12H [facility] Last Admin: 03/19/18 02:08 Dose: 250 mls/hr Fentanyl/Bupivacaine HCl (Fjbyglwg-Xxkxh-Bk 2 Mcg/Ml-0.125%) Confirm Administered Dose 100 mls @ as directed EP .STK-MED ONE Stop: 03/19/18 00:06 Fentanyl/Bupivacaine HCl (Xjqexuwq-Rosgy-Ms 2 Mcg/Ml-0.125%) Confirm Administered Dose 100 mls @ as directed EP .STK-MED ONE Stop: 03/19/18 11:14 Oxytocin/Sodium Chloride (Oxytocin 30 Unit/500 Ml-Ns) Confirm Administered Dose 30 unit in 500 mls @ as directed .ROUTE .STK-MED ONE Stop: 03/19/18 15:56 Ketorolac Tromethamine (Toradol) 30 mg IVPUSH Q6H BLA[facility] Stop: 03/20/18 19:31 Last Admin: 03/20/18 19:30 Dose: 30 mg Methylergonovine Maleate (Methergine) Confirm Administered Dose 0.2 mg .ROUTE .STK-MED ONE Stop: 03/19/18 17:13 Midazolam HCl (Versed 1 Mg/Ml) Confirm Administered Dose 2 mg .ROUTE .STK-MED ONE Stop: 03/19/18 16:53 Morphine Sulfate (Duramorph Pf) Confirm Administered Dose 1 mg .ROUTE .STK-MED ONE Stop: 03/19/18 16:54 Nalbuphine HCl (Nubain) 10 mg IVPUSH Q1H PRN PRN Reason: Pain (severe 7-10) Nalbuphine HCl (Nubain) 5 mg IVPUSH Q3H PRN PRN Reason: Pruritis Stop: 03/20/18 17:17 Naloxone HCl (Narcan) 0.1 mg IVPUSH ONETIME PRN PRN Reason: Respiratory Depression Stop: 03/20/18 17:17 Ondansetron HCl (Zofran) Confirm Administered Dose 4 mg .ROUTE .STK-MED ONE Stop: 03/19/18 17:35 Phenylephrine HCl (Phenylephrine In Ns 100 Mcg/Ml) Confirm Administered Dose 1 mg .ROUTE .STK-MED ONE Stop: 03/19/18 17:11 Terbutaline Sulfate (Brethine) 0.25 mg SUBCUT ASDIRECTED PRN PRN Reason: Tacysystole Vancomycin HCl (Vancocin) Confirm Administered Dose 1 gm .ROUTE .STK-MED ONE Stop: 03/18/18 01:49 Last Admin: 03/18/18 02:05 Dose: 1 gm - Interaction Disposition, : [place] at Bedside Infant Feeding: Attempted ; Nursed Fair/Poor, Continues to Breastfeed, Encouraged to Breastfeed Support Person: - Recovery Exam Fundal Tone: Firm Fundal Level: 1 Fingerbreadths Above Umbilicus Fundal Placement: Midline Lochia Amount: Scant Lochia Color: Rubra/Red Perineum Description: Intact, Minimal Bruising/Swelling Episiotomy/Laceration: None Bladder Status: Voiding Urinary Elimination: Voided - Exam General: Alert, Oriented HEENT: Pupils Equal Lungs: Clear to Auscultation, Normal Respiratory Effort Cardiovascular: Regular Rate, Regular Rhythm GI/Abdominal Exam: Normal Bowel Sounds Extremities: Non-Tender, Pedal Edema Skin: Warm Wound/Incisions: Healing Well Psy/Mental Status: Alert, Normal Affect, Normal Mood - Problem List & Annotations (1) delivery delivered SNOMED Code(s): 444744298 Code(s): O82 - ENCOUNTER FOR DELIVERY WITHOUT INDICATION Status: Acute Current Visit: Yes - Problem List Review Problem List Initiated/Reviewed/Updated: Yes - Assessment Assessment:: POD#2 s/p Primary for failed IOL. Doing well - Plan Plan:: Discharge instructions reviewed Nothing in the vagina in 6 weeks Care of the incision reviewed Prescription for Percocet and Ibuprofen given Bleeding and infection precautions reviewed S/S of blues vs depression reviewed, encouraged to contact provider with any concerns [facility]
[2018-03-22] MEDS: Acetaminophen/oxyCODONE 325-5 MG Tab PO PRN (00:01)
== END 2018-03-22 00:05 | disposition home or self-care (01) | DRG 788 ==
LOC: MW.OBCHECK 00:09 → MW.OB 00:13 → MW.OBCHECK 00:20 → MW.OB 00:20 → OBSVTOIN 17:03 → MW.OB 03-19 17:48
PROVIDERS: ADMIT Obstetrics & Gynecology; ATTEND Obstetrics & Gynecology
PROC: 10D00Z1 Extraction of Products of Conception, Low, Open Approach (ICD-10-PCS; principal; 2018-03-18)
PROC: 3E0P7VZ Introduction of Hormone into Female Reproductive, Via Natural or Artificial Opening (ICD-10-PCS; 2018-03-18)
PROC: 4A1H7CZ Monitoring of Products of Conception, Cardiac Rate, Via Natural or Artificial Opening (ICD-10-PCS; 2018-03-18)
PROC: 10H073Z Insertion of Monitoring Electrode into Products of Conception, Via Natural or Artificial Opening (ICD-10-PCS; 2018-03-18)
PROC: 00HU33Z Insertion of Infusion Device into Spinal Canal, Percutaneous Approach (ICD-10-PCS; 2018-03-18)
DX: O48.0 Post-term pregnancy (principal); O61.0 Failed medical induction of labor; Z3A.40 40 weeks gestation of pregnancy; Z37.0 Single live birth
CPT/HCPCS: 01967-QZ; 01968; 36415; 51701; 59200; 85014; 85018; 85027; 86850; 86900; 86901; 86920; 86921; 86922; A9270-GY; J0595; J1100; J1200; J1885; J2210; J2250; J2274; J2370; J2405; J2590; J3010; J3370; J3490; J7050; J7120

== ENCOUNTER 2020-03-23 05:02 | Inpatient (IN) | payer OTHER ==
[2020-03-23] MEDS ORDERED: Sodium Chloride 0.9% 10 ML SDV IV PRN (05:06)
[2020-03-23] MEDS ORDERED: Sodium Chloride 0.9% 10 ML Syringe FLUSH PRN (05:06)
[2020-03-23] MEDS ORDERED: Sodium Chloride 0.9% 2.5 ML Syringe FLUSH PRN (05:06)
[2020-03-23] MEDS ORDERED: Clindamycin Phosphate in D5W 900 MG in Premix Bag 1 BAG IV ONE ×2 (05:06)
[2020-03-23] MEDS ORDERED: Citric Acid/Sodium Citrate Solution 30 ML Cup PO ONE (05:06)
[2020-03-23] MEDS ORDERED: Oxytocin/0.9 % Sodium Chloride 30 UNIT/500 ML BAG IV SCH (05:15)
[2020-03-23] MEDS: Lactated Ringers 1,000 ML IV SCH ×4 (05:42→18:15)
--- NOTE | 2020-03-23 06:59 | PCM.PREANE ---
Preanesthetic Assessment - Anesthesia/Transfusion/Family Hx Anesthesia History: Prior Anesthesia Without Reaction Family History of Anesthesia Reaction: No Transfusion History: No Prior Transfusion(s) - Review of Systems General: No Symptoms Pulmonary: No Symptoms Cardiovascular: No Symptoms Gastrointestinal: No Symptoms Neurological: No Symptoms Other: Reports: None - Physical Assessment NPO Status Date: 03/22/20 NPO Status Time: 22:00 Height: 5 ft 8 in Weight: 222 kg ASA Class: 2 Mental Status: Alert & Oriented x3 Airway Class: Mallampati = 2 Dentition: Reports: Normal Dentition Thyro-Mental Finger Breadths: 3 Mouth Opening Finger Breadths: 3 ROM/Head Extension: Full Lungs: Clear to Auscultation, Normal Respiratory Effort Cardiovascular: Regular Rate, Regular Rhythm - Allergies Allergies/Adverse Reactions: Allergies Allergy/AdvReac Type Severity Reaction Status Date / Time cat dander Allergy Unknown itchy/watery Verified 03/19/20 09:49 eyes dog dander Allergy Unknown itchy/watery Verified 03/19/20 09:49 eyes Penicillins Allergy Unknown Hives Verified 03/19/20 09:49 - Blood Blood Available: No - Acknowledgements Anesthesia Type Planned: Epidural Pt an Appropriate Candidate for the Planned Anesthesia: Yes Alternatives and Risks of Anesthesia Discussed w Pt/Guardian: Yes Pt/Guardian Understands and Agrees with Anesthesia Plan: Yes PreAnesthesia Questionnaire HEENT History: Reports: None Cardiovascular History: Reports: None Respiratory History: Reports: Asthma Other Respiratory History: exercise size induced asthma Gastrointestinal History: Reports: GERD, Other (See Below) Other Gastrointestinal History: heartburn with Genitourinary History: Reports: None HOTEL MAID History: Reports: , Other (See Below) : 2 Para: 1 LMP (Approximate): Other OB/BYN History: LEEP; Previous CS Musculoskeletal History: Reports: None Neurological History: Reports: Concussion Psychiatric History: Reports: Anxiety, Depression Other Psychiatric History: Hx of multiple pharmacological therapies with no improvement Endocrine/Metabolic History: Reports: None Hematologic History: Reports: None Immunologic History: Reports: None Oncologic (Cancer) History: Reports: None Dermatologic History: Reports: None - Past Surgical History Head Surgeries/Procedures: Reports: None HEENT Surgical History: Reports: Other (See Below) Cardiovascular Surgical History: Reports: None Respiratory Surgical History: Reports: None GI Surgical History: Reports: None Female Surgical History: Reports: Section, LEEP Endocrine Surgical History: Reports: None Neurological Surgical History: Reports: None Musculoskeletal Surgical History: Reports: None Oncologic Surgical History: Reports: None Dermatological Surgical History: Reports: None - SUBSTANCE USE Smoking Status *Q: Former Smoker Tobacco Use Within Last Twelve Months: No Second Hand Smoke Exposure: No Recreational Drug Use History: No - HOME MEDS Home Medications: Home Meds Albuterol/Ipratropium [Combivent Respimat] 1 puff INH Q6H PRN 03/18/18 [History] Vit Calc,Iron,Folic [ Vitamins] 1 each PO DAILY 03/18/18 [History] Vitamin B Complex 1 cap PO DAILY 03/18/18 [History] valACYclovir HCl [valACYclovir] 1 tab PO DAILY PRN 03/18/18 [History] Calcium Carb/D3/Mag AA Chelate [Coral Calcium Capsule] 1 tab PO DAILY 03/19/20 [History] Calcium Carbonate [Tums] 1 tab.chew CHEW ASDIRECTED PRN 03/19/20 [History] Agar-3S/DHA/Epa/Fish Oil/D3 [Agar-3 + D Softgel] 1 tab PO DAILY 03/19/20 [History] - CURRENT (IN HOUSE) MEDS Current Meds: Current Medications Oxytocin/Sodium Chloride (Oxytocin 30 Unit/500 Ml-Ns) 30 unit in 500 mls @ 250 mls/hr IV TITRATE BLAISE Lactated Ringer's (Ringers, Lactated) 1,000 mls @ 500 mls/hr IV BOLUS BLAISE Stop: 03/24/20 07:14 Last Admin: 03/23/20 06:49 Dose: 500 mls/hr Documented by: Sodium Chloride (Saline Flush) 10 ml FLUSH ASDIRECTED PRN PRN Reason: Keep Vein Open Sodium Chloride (Saline Flush) 2.5 ml FLUSH ASDIRECTED PRN PRN Reason: Keep Vein Open Sodium Chloride (Normal Saline) 10 ml IV ASDIRECTED PRN PRN Reason: IV Use Discontinued Medications Citric Acid/Sodium Citrate (Bicitra Solution) 30 ml PO ONETIME ONE Stop: 03/23/20 05:07 Clindamycin Phosphate 900 mg/ (Premix) 50 mls @ 100 mls/hr IV ASDIRECTED ONE Stop: 03/23/20 05:35 Last Admin: 03/23/20 06:49 Dose: 100 mls/hr Documented by: Gentamicin Sulfate 100 mg/ (Sodium Chloride) 52.5 mls @ 100 mls/hr IV ONETIME ONE Stop: 03/23/20 05:42 Last Admin: 03/23/20 05:41 Dose: 100 mls/hr Documented by:
[2020-03-23] MEDS ORDERED: Phenylephrine 1% 10 MG/ML SDV ONE (07:18)
[2020-03-23] MEDS ORDERED: Ondansetron 4 MG/2 ML SDV ONE (07:18)
[2020-03-23] MEDS ORDERED: Oxytocin/0.9 % Sodium Chloride 30 UNIT/500 ML BAG ONE (07:21)
[2020-03-23] MEDS ORDERED: Morphine PF 10 MG/10 ML SDV ONE (07:26)
[2020-03-23] MEDS ORDERED: Citric Acid/Sodium Citrate Solution 30 ML Cup ONE (07:49)
[2020-03-23] MEDS ORDERED: diphenhydrAMINE 50 MG/ML SDV IVPUSH PRN ×2 (08:54→09:52)
[2020-03-23] MEDS ORDERED: Naloxone 0.4 MG/ML Syringe IVPUSH PRN (08:54)
[2020-03-23] MEDS ORDERED: Nalbuphine 10 MG/1 ML Vial IVPUSH PRN (08:54)
[2020-03-23] MEDS ORDERED: Ketorolac 30 MG/ML SDV ONE (09:24)
[2020-03-23] MEDS ORDERED: Tranexamic Acid 1,000 MG in Sodium Chloride 0.9% 100 ML IV PRN (09:52)
[2020-03-23] MEDS ORDERED: Acetaminophen/oxyCODONE 325-5 MG Tab PO PRN ×2 (09:52)
[2020-03-23] MEDS ORDERED: Misoprostol 200 MCG Tab RECTAL PRN (09:52)
[2020-03-23] MEDS ORDERED: Oxytocin 10 Units/1 ML SDV IM PRN (09:52)
[2020-03-23] MEDS ORDERED: Methylergonovine 0.2 MG/1 ML Amp IM PRN (09:52)
[2020-03-23] MEDS ORDERED: Lanolin 100% Cream 7 GM Tube TOP PRN (09:52)
[2020-03-23] MEDS ORDERED: Bisacodyl 10 MG Supp RECTAL PRN (09:52)
[2020-03-23] MEDS ORDERED: Oxytocin/Lactated Ringers 30 UNIT/500 ML BAG IV SCH (10:00)
--- NOTE | 2020-03-23 10:02 | PCM.OPNOTE ---
- General Post-Op/Procedure Note Date of Surgery/Procedure: 03/23/20 Operative Procedure(s): Repeat lower transverse Findings: Live female delivered at 840am , 9/9 weight pending Pre Op Diagnosis: 34yo @ 39w1d for repeat cesection. GBS positive Post-Op Diagnosis: same Anesthesia Technique: Spinal Primary Surgeon: Steven Palma Anesthesia Provider: Stephanie Levine Chief Administrative Officer: Linda Izquierdo Reason Chief Administrative Officer Was Necessary: Linda Izquierdo MS Pathology: Placenta Fluid Replacement, Intraop: 600 Output, Urine Amount: 100 EBL in mLs: 600 Complications: None Condition: Good Free Text/Narrative:: Intake & Output 03/22/20 03/23/20 03/23/20 22:59 06:59 14:59 Intake Total 1050 Balance 1050
--- NOTE | 2020-03-23 10:19 | PCM.POSTAN ---
POST ANESTHESIA ASSESSMENT - MENTAL STATUS Mental Status: Alert, Oriented - VITAL SIGNS Vital Signs: Last Vital Signs Temp 36.8 C 03/23/20 09:37 Pulse 76 03/23/20 10:15 Resp 16 03/23/20 10:15 BP 117/63 03/23/20 10:15 Pulse Ox 98 03/23/20 10:15 - RESPIRATORY Respiratory Status: Respiratory Rate WNL, Airway Patent, O2 Saturation Stable - CARDIOVASCULAR CV Status: Pulse Rate WNL, Blood Pressure Stable - GASTROINTESTINAL GI Status: No Symptoms - PAIN Pain Score: 0 - POST OP HYDRATION Hydration Status: Adequate & Stable - OBSERVATIONS Free Text/Narrative:: moving feet and states numbness is dissipating
[2020-03-23] MEDS: Ketorolac 30 MG/ML SDV IVPUSH SCH ×3 (10:58→22:17)
[2020-03-23] MEDS: Ondansetron 4 MG/2 ML SDV IVPUSH PRN ×2 (13:00→18:14)
[2020-03-23] MEDS: Docusate Sodium 100 MG Cap PO SCH (21:37)
[2020-03-24] MEDS: Ketorolac 30 MG/ML SDV IVPUSH SCH ×2 (04:17→09:48)
--- NOTE | 2020-03-24 08:32 | PCM.PNPP ---
- General Info Date of Service: 03/24/20 Admission Dx/Problem (Free Text): 34 year old G2 now P2 s/p scheduled repeat LTCS Subjective Update: No new concerns overnight. Patient resting comfortably in bed, nursing during rounds this morning. Ambulating and voiding without difficulty. Pain well controlled. Lochia decreasing. Tolerating regular diet. going well. - General Info Date of Service: 03/24/20 - Patient Data Vital Signs - Most Recent: Last Vital Signs Temp 98.2 F 03/24/20 07:40 Pulse 75 03/24/20 07:40 Resp 14 03/24/20 07:40 BP 119/90 03/24/20 07:40 Pulse Ox 96 03/24/20 08:19 Weight - Most Recent: 222 lb I&O - Last 24 Hours: Intake & Output 03/23/20 03/24/20 03/24/20 22:59 06:59 14:59 Intake Total 1800 Output Total 500 3500 1000 Balance -500 -1700 -1000 Lab Results - Last 24 Hours: Laboratory Results - last 24 hr 03/23/20 03/23/20 03/24/20 Range/Units 08:40 13:25 06:00 WBC 11.38 H (4.0-11.0) K/uL RBC 3.66 L (4.30-5.90) M/uL Hgb 11.6 L 11.4 L (12.0-16.0) g/dL Hct 35.0 L 34.8 L (36.0-46.0) % MCV 95.6 (80.0-98.0) fL MCH 31.7 (27.0-32.0) pg MCHC 33.1 (31.0-37.0) g/dL RDW Std Deviation 51.1 (28.0-62.0) fl RDW Coeff of Nadege 15 (11.0-15.0) % Plt Count 127 L (150-400) K/uL MPV 11.00 (7.40-12.00) fL Neutrophils % (Manual) 80 (48.0-80.0) % Lymphocytes % (Manual) 12 L (16.0-40.0) % Monocytes % (Manual) 8 (0.0-15.0) % Nucleated RBC % 0.0 /100WBC Absolute Seg Neuts 9.1 H (1.4-5.7) Lymphocytes # (Manual) 1.4 (0.6-2.4) Monocytes # (Manual) 0.9 H (0.0-0.8) Rhogam Indicated NO, MOM+BABY RH NEG Med Orders - Current: Current Medications Bisacodyl (Dulcolax) 10 mg RECTAL ONETIME PRN PRN Reason: Constipation Diphenhydramine HCl (Benadryl) 25 mg IVPUSH Q4H PRN PRN Reason: Itching Stop: 03/24/20 08:54 Diphenhydramine HCl (Benadryl) 25 mg IVPUSH Q6H PRN PRN Reason: Itching or Nausea Docusate Sodium (Colace) 100 mg PO BID [facility] Last Admin: 03/23/20 21:37 Dose: 100 mg Documented by: Emollient Ointment (Lansinoh Hpa) 0 gm TOP ASDIRECTED PRN PRN Reason: Sore Nipples Oxytocin/Sodium Chloride (Oxytocin 30 Unit/500 Ml-Ns) 30 unit in 500 mls @ 250 mls/hr IV TITRATE BLAISE Lactated Ringer's (Ringers, Lactated) 1,000 mls @ 125 mls/hr IV ASDIRECTED [facility] Last Infusion: 03/24/20 00:52 Dose: 0 mls/hr Documented by: Oxytocin/Lactated Ringer's (Pitocin In Lr 30 Units/500 Ml) 30 unit in 500 mls @ 125 mls/hr IV TITRATE BLAISE; Protocol Tranexamic Acid 1,000 mg/ (Sodium Chloride) 110 mls @ 660 mls/hr IV ONETIME PRN PRN Reason: Bleeding Ibuprofen (Motrin) 800 mg PO Q8H PRN PRN Reason: mild pain or fever Ketorolac Tromethamine (Toradol) 30 mg IVPUSH Q6H [facility] Stop: 03/24/20 10:01 Last Admin: 03/24/20 04:17 Dose: 30 mg Documented by: Methylergonovine Maleate (Methergine) 0.2 mg IM ONETIME PRN PRN Reason: Excessive Vaginal Bleeding Misoprostol (Cytotec) 1,000 mcg RECTAL ONETIME PRN PRN Reason: excessive bleeding Naloxone HCl (Narcan) 0.1 mg IVPUSH ONETIME PRN PRN Reason: Respiratory Depression Stop: 10/03/20 08:54 Ondansetron HCl (Zofran) 4 mg IVPUSH Q4H PRN PRN Reason: Nausea/Vomiting Last Admin: 03/23/20 18:14 Dose: 4 mg Documented by: Oxycodone/Acetaminophen (Percocet 325-5 Mg) 1 tab PO Q4H PRN PRN Reason: Pain (moderate 4-6) Oxycodone/Acetaminophen (Percocet 325-5 Mg) 2 tab PO Q4H PRN PRN Reason: Pain (moderate 4-6) Oxytocin (Pitocin) 10 unit IM ASDIRECTED PRN PRN Reason: Excessive Vaginal Bleeding Sodium Chloride (Saline Flush) 10 ml FLUSH ASDIRECTED PRN PRN Reason: Keep Vein Open Sodium Chloride (Saline Flush) 2.5 ml FLUSH ASDIRECTED PRN PRN Reason: Keep Vein Open Sodium Chloride (Normal Saline) 10 ml IV ASDIRECTED PRN PRN Reason: IV Use Discontinued Medications Citric Acid/Sodium Citrate (Bicitra Solution) 30 ml PO ONETIME ONE Stop: 03/23/20 05:07 Last Admin: 03/23/20 08:03 Dose: 30 ml Documented by: Citric Acid/Sodium Citrate (Bicitra Solution) Confirm Administered Dose 30 ml .ROUTE .STK-MED ONE Stop: 03/23/20 07:50 Clindamycin Phosphate 900 mg/ (Premix) 50 mls @ 100 mls/hr IV ASDIRECTED ONE Stop: 03/23/20 05:35 Last Admin: 03/23/20 06:49 Dose: 100 mls/hr Documented by: Lactated Ringer's (Ringers, Lactated) 1,000 mls @ 500 mls/hr IV BOLUS BLAISE Stop: 03/24/20 07:14 Last Admin: 03/23/20 06:49 Dose: 500 mls/hr Documented by: Gentamicin Sulfate 100 mg/ (Sodium Chloride) 52.5 mls @ 100 mls/hr IV ONETIME ONE Stop: 03/23/20 05:42 Last Admin: 03/23/20 05:41 Dose: 100 mls/hr Documented by: Oxytocin/Sodium Chloride (Oxytocin 30 Unit/500 Ml-Ns) Confirm Administered Dose 30 unit in 500 mls @ as directed .ROUTE .STK-MED ONE Stop: 03/23/20 07:22 Ketorolac Tromethamine (Toradol) Confirm Administered Dose 30 mg .ROUTE .STK-MED ONE Stop: 03/23/20 09:25 Morphine Sulfate (Duramorph Pf) Confirm Administered Dose 10 mg .ROUTE .STK-MED ONE Stop: 03/23/20 07:27 Ondansetron HCl (Zofran) Confirm Administered Dose 4 mg .ROUTE .STK-MED ONE Stop: 03/23/20 07:19 Phenylephrine HCl (Jacoby-Synephrine) Confirm Administered Dose 10 mg .ROUTE .STK- MED ONE Stop: 03/23/20 07:19 - Infant Interaction Infant Disposition, : in Room with Family Interaction: Holding Infant Infant Feeding: Breastfed Infant; Nursed Well Support Person: - Recovery Exam Fundal Tone: Firm Fundal Level: 2 Fingerbreadths Below Umbilicus Fundal Placement: Midline Lochia Amount: Scant Lochia Color: Rubra/Red Bladder Status: Voiding Urinary Elimination: Voided - Exam General: Alert, Oriented Lungs: Normal Respiratory Effort Cardiovascular: Regular Rate GI/Abdominal Exam: Soft, Non-Tender Extremities: No Pedal Edema Skin: Warm, Dry Wound/Incisions: Healing Well, Dressing Dry and Intact, No Drainage, Erythema Neurological: No New Focal Deficit Psy/Mental Status: Alert, Normal Affect, Normal Mood - Problem List Review Problem List Initiated/Reviewed/Updated: Yes - Assessment Assessment:: 34 year old G2 now P2 POD #1 s/p routine repeat LTCS - Plan Plan:: Routine /postoperative cares * Blood type: O negative, pending lab results * Rubella immune * GBS positive- s/p IV antibiotics prior to delivery * Pain well controlled * Incision clean/dry/intact * Encourage ambulation and fluid intake * : nursing assistance PRN Dispo: stable. Anticipate dismissal POD #2-3 pending patient/infant status. Continue cares today.
[2020-03-24] MEDS: Docusate Sodium 100 MG Cap PO SCH ×2 (09:41→20:51)
--- NOTE | 2020-03-24 12:27 | PCM48HPAN ---
Post Anesthesia Note - EVALUATION WITHIN 48HRS OF ANESTHETIC Vital Signs in Normal Range: Yes Patient Participated in Evaluation: Yes Respiratory Function Stable: Yes Airway Patent: Yes Cardiovascular Function Stable: Yes Hydration Status Stable: Yes Pain Control Satisfactory: Yes Nausea and Vomiting Control Satisfactory: Yes Mental Status Recovered: Yes Vital Signs: Last Vital Signs Temp 36.8 C 03/24/20 07:40 Pulse 75 03/24/20 07:40 Resp 16 03/24/20 09:00 BP 119/90 03/24/20 07:40 Pulse Ox 96 03/24/20 09:00
[2020-03-24] MEDS: Ibuprofen 800 MG Tab PO PRN ×2 (16:17→23:32)
[2020-03-24] MEDS: Acetaminophen 500 MG Tab PO PRN (20:50)
[2020-03-25] MEDS: Ibuprofen 800 MG Tab PO PRN (07:56)
--- NOTE | 2020-03-25 08:16 | PCM.PNPP ---
- General Info Date of Service: 03/25/20 Admission Dx/Problem (Free Text): 34 year old G2 now P2 s/p scheduled repeat LTCS Subjective Update: No new concerns overnight. Patient resting comfortably in bed, holding during rounds this morning. Ambulating and voiding without difficulty. Pain well controlled. Lochia decreasing. Tolerating regular diet. going well. - General Info Date of Service: 03/25/20 - Patient Data Vital Signs - Most Recent: Last Vital Signs Temp 97.1 F 03/25/20 03:56 Pulse 75 03/25/20 03:56 Resp 16 03/25/20 03:56 BP 116/69 03/25/20 03:56 Pulse Ox 95 03/25/20 03:56 Weight - Most Recent: 222 lb Med Orders - Current: Current Medications Acetaminophen (Tylenol Extra Strength) 1,000 mg PO Q6H PRN PRN Reason: Pain Last Admin: 03/24/20 20:50 Dose: 1,000 mg Documented by: Bisacodyl (Dulcolax) 10 mg RECTAL ONETIME PRN PRN Reason: Constipation Diphenhydramine HCl (Benadryl) 25 mg IVPUSH Q6H PRN PRN Reason: Itching or Nausea Docusate Sodium (Colace) 100 mg PO BID BLAISE Last Admin: 03/24/20 20:51 Dose: 100 mg Documented by: Emollient Ointment (Lansinoh Hpa) 0 gm TOP ASDIRECTED PRN PRN Reason: Sore Nipples Oxytocin/Sodium Chloride (Oxytocin 30 Unit/500 Ml-Ns) 30 unit in 500 mls @ 250 mls/hr IV TITRATE BLAISE Lactated Ringer's (Ringers, Lactated) 1,000 mls @ 125 mls/hr IV ASDIRECTED BLAISE Last Infusion: 03/24/20 00:52 Dose: 0 mls/hr Documented by: Oxytocin/Lactated Ringer's (Pitocin In Lr 30 Units/500 Ml) 30 unit in 500 mls @ 125 mls/hr IV TITRATE BLAISE; Protocol Tranexamic Acid 1,000 mg/ (Sodium Chloride) 110 mls @ 660 mls/hr IV ONETIME PRN PRN Reason: Bleeding Ibuprofen (Motrin) 800 mg PO Q8H PRN PRN Reason: mild pain or fever Last Admin: 03/25/20 07:56 Dose: 800 mg Documented by: Methylergonovine Maleate (Methergine) 0.2 mg IM ONETIME PRN PRN Reason: Excessive Vaginal Bleeding Misoprostol (Cytotec) 1,000 mcg RECTAL ONETIME PRN PRN Reason: excessive bleeding Ondansetron HCl (Zofran) 4 mg IVPUSH Q4H PRN PRN Reason: Nausea/Vomiting Last Admin: 03/23/20 18:14 Dose: 4 mg Documented by: Oxycodone/Acetaminophen (Percocet 325-5 Mg) 1 tab PO Q4H PRN PRN Reason: Pain (moderate 4-6) Oxycodone/Acetaminophen (Percocet 325-5 Mg) 2 tab PO Q4H PRN PRN Reason: Pain (moderate 4-6) Oxytocin (Pitocin) 10 unit IM ASDIRECTED PRN PRN Reason: Excessive Vaginal Bleeding Sodium Chloride (Saline Flush) 10 ml FLUSH ASDIRECTED PRN PRN Reason: Keep Vein Open Sodium Chloride (Saline Flush) 2.5 ml FLUSH ASDIRECTED PRN PRN Reason: Keep Vein Open Sodium Chloride (Normal Saline) 10 ml IV ASDIRECTED PRN PRN Reason: IV Use Discontinued Medications Citric Acid/Sodium Citrate (Bicitra Solution) 30 ml PO ONETIME ONE Stop: 03/23/20 05:07 Last Admin: 03/23/20 08:03 Dose: 30 ml Documented by: Citric Acid/Sodium Citrate (Bicitra Solution) Confirm Administered Dose 30 ml .ROUTE .STK-MED ONE Stop: 03/23/20 07:50 Diphenhydramine HCl (Benadryl) 25 mg IVPUSH Q4H PRN PRN Reason: Itching Stop: 03/24/20 08:54 Clindamycin Phosphate 900 mg/ (Premix) 50 mls @ 100 mls/hr IV ASDIRECTED ONE Stop: 03/23/20 05:35 Last Admin: 03/23/20 06:49 Dose: 100 mls/hr Documented by: Lactated Ringer's (Ringers, Lactated) 1,000 mls @ 500 mls/hr IV BOLUS BLA[facility] Stop: 03/24/20 07:14 Last Admin: 03/23/20 06:49 Dose: 500 mls/hr Documented by: Gentamicin Sulfate 100 mg/ (Sodium Chloride) 52.5 mls @ 100 mls/hr IV ONETIME ONE Stop: 03/23/20 05:42 Last Admin: 03/23/20 05:41 Dose: 100 mls/hr Documented by: Oxytocin/Sodium Chloride (Oxytocin 30 Unit/500 Ml-Ns) Confirm Administered Dose 30 unit in 500 mls @ as directed .ROUTE .STK-MED ONE Stop: 03/23/20 07:22 Ketorolac Tromethamine (Toradol) Confirm Administered Dose 30 mg .ROUTE .STK-MED ONE Stop: 03/23/20 09:25 Ketorolac Tromethamine (Toradol) 30 mg IVPUSH Q6H [facility] Stop: 03/24/20 10:01 Last Admin: 03/24/20 09:48 Dose: 30 mg Documented by: Morphine Sulfate (Duramorph Pf) Confirm Administered Dose 10 mg .ROUTE .STK-MED ONE Stop: 03/23/20 07:27 Naloxone HCl (Narcan) 0.1 mg IVPUSH ONETIME PRN PRN Reason: Respiratory Depression Stop: 03/24/20 08:54 Ondansetron HCl (Zofran) Confirm Administered Dose 4 mg .ROUTE .STK-MED ONE Stop: 03/23/20 07:19 Phenylephrine HCl (Jacoby-Synephrine) Confirm Administered Dose 10 mg .ROUTE .STK- MED ONE Stop: 03/23/20 07:19 - Interaction Infant Disposition, : [place] in Room with Family Infant Interaction: Holding Feeding: Breastfed Infant; Nursed Well Support Person: - Recovery Exam Fundal Tone: Firm Fundal Level: 2 Fingerbreadths Below Umbilicus Fundal Placement: Midline Lochia Amount: Scant Lochia Color: Rubra/Red Bladder Status: Voiding Urinary Elimination: Voided - Exam General: Alert, Oriented Lungs: Normal Respiratory Effort Cardiovascular: Regular Rate GI/Abdominal Exam: Soft, Non-Tender Extremities: Normal Inspection, No Pedal Edema Skin: Warm, Dry, Intact Wound/Incisions: Healing Well Neurological: No New Focal Deficit Psy/Mental Status: Alert, Normal Affect, Normal Mood - Problem List Review Problem List Initiated/Reviewed/Updated: Yes - My Orders Last 24 Hours: My Active Orders 03/24/20 20:33 Acetaminophen [Tylenol Extra Strength] 1,000 mg PO Q6H PRN - Assessment Assessment:: 34 year old G2 now P2 POD #2 s/p routine repeat LTCS - Plan Plan:: Routine /postoperative cares * Blood type: O negative, pending infant lab results * Rubella immune * GBS positive- s/p IV antibiotics prior to delivery * Pain well controlled * Incision clean/dry/intact * Encourage ambulation and fluid intake * : nursing assistance PRN Dispo: stable. Anticipate dismissal POD #2-3 pending patient/ status. Continue cares today.
[2020-03-25] MEDS: Acetaminophen 500 MG Tab PO PRN (11:12)
[2020-03-25] MEDS: Docusate Sodium 100 MG Cap PO SCH (11:18)
--- NOTE | 2020-03-26 11:00 | OR ---
SURGEON: HAL JONES DATE OF PROCEDURE: 03/23/2020 PREOPERATIVE DIAGNOSIS: A 34-year-old, G2, P 1-0-0-1, at 39 weeks and 1 day, admitted for a repeat section. POSTOPERATIVE DIAGNOSIS: A 34-year-old, G2, P 1-0-0-1, at 39 weeks and 1 day, admitted for a repeat section. PROCEDURE: Repeat lower transverse section. ESTIMATED BLOOD LOSS: 600. IV FLUIDS: 600. URINE OUTPUT: 100. NOTES AND FINDING: A live female delivered at 8:40 a.m. score of 9 and 9. Weight is 4140 g. ANESTHESIA: Spinal. BRIEF HISTORY ABOUT THE PATIENT: She is a 34-year-old, G2, P 1-0-0-1, at 39 weeks and 1 day, low risk patient, GBS positive, who was desiring a repeat section. She declined a trial of labor. The patient was explained the risks, benefits, and alternatives, and she desired to proceed. DESCRIPTION OF PROCEDURE: The patient was taken to the operating room where spinal anesthesia was performed without difficulty. She was prepared and draped in the dorsolithotomy position with a leftward tilt. A Pfannenstiel skin incision was made and carried down to the fascia with the Bovie. The fascia was incised and extended upwards and laterally. The fascia was then dissected off the rectus muscles superiorly and inferiorly. The rectus muscle was in the midline to the pubic symphysis. The abdomen was entered in with the aid of blunt and sharp dissection. The entry into the peritoneum was extended up manually with traction. The Mendoza retractor was placed then without any difficulty. An incision was made in the lower uterine segment with a scalpel and was extended inferiorly and superiorly. The infant was in occiput transverse position, was brought to the level of the incision. With fundal pressure, baby was delivered. Delayed cord clamping was observed. cord blood gases were obtained. The cord was clamped and cut and handed over to the awaiting injection molding machine operator. Then, the placenta was delivered via manual massage of the uterine fundus. The fundus was then cleaned with moist laparotomy sponges. The hysterotomy incision was closed in 2 layers, first layer was a locking 0 Vicryl, second layer was a 0 Monocryl imbricating layer. The Mendoza retractor was removed. Incision was inspected and noted to be hemostatic. The adnexa were inspected, noted to be normal. The gutters were cleaned with moist laparotomy sponges. The incision was then inspected again after the Mendoza was removed. It was noted to be hemostatic. The peritoneum was then approximated in the midline. Then, the fascia was closed with 0 Vicryl. The subcutaneous fascia was closed with 3-0 plain gut. The skin was closed with 3-0 Monocryl on a Obie needle. All instrument and pad counts were correct x2. The patient tolerated the procedure well and was taken to Labor and Delivery room in stable condition. CIERRA HENRY /[id number] MTDD
--- NOTE | 2020-04-25 14:55 | PCM.PN ---
- General Info Date of Service: 03/25/20 Admission Dx/Problem (Free Text): 34 year old G2 now P2 s/p scheduled repeat LTCS - Patient Data Vitals - Most Recent: Last Vital Signs Temp 97.7 F 03/25/20 08:20 Pulse 76 03/25/20 08:20 Resp 16 03/25/20 08:20 BP 119/75 03/25/20 08:20 Pulse Ox 98 03/25/20 08:20 Weight - Most Recent: 222 lb 0.017 oz Med Orders - Current: Current Medications Discontinued Medications Acetaminophen (Tylenol Extra Strength) 1,000 mg PO Q6H PRN PRN Reason: Pain Last Admin: 03/25/20 11:12 Dose: 1,000 mg Documented by: Bisacodyl (Dulcolax) 10 mg RECTAL ONETIME PRN PRN Reason: Constipation Citric Acid/Sodium Citrate (Bicitra Solution) 30 ml PO ONETIME ONE Stop: 03/23/20 05:07 Last Admin: 03/23/20 08:03 Dose: 30 ml Documented by: Citric Acid/Sodium Citrate (Bicitra Solution) Confirm Administered Dose 30 ml .ROUTE .STK-MED ONE Stop: 03/23/20 07:50 Diphenhydramine HCl (Benadryl) 25 mg IVPUSH Q4H PRN PRN Reason: Itching Stop: 03/24/20 08:54 Diphenhydramine HCl (Benadryl) 25 mg IVPUSH Q6H PRN PRN Reason: Itching or Nausea Docusate Sodium (Colace) 100 mg PO BID [facility] Last Admin: 03/25/20 11:18 Dose: Not Given Documented by: Emollient Ointment (Lansinoh Hpa) 0 gm TOP ASDIRECTED PRN PRN Reason: Sore Nipples Oxytocin/Sodium Chloride (Oxytocin 30 Unit/500 Ml-Ns) 30 unit in 500 mls @ 250 mls/hr IV TITRATE [facility] Clindamycin Phosphate 900 mg/ (Premix) 50 mls @ 100 mls/hr IV ASDIRECTED ONE Stop: 03/23/20 05:35 Last Admin: 03/23/20 06:49 Dose: 100 mls/hr Documented by: Lactated Ringer's (Ringers, Lactated) 1,000 mls @ 500 mls/hr IV BOLUS [facility] Stop: 03/24/20 07:14 Last Admin: 03/23/20 06:49 Dose: 500 mls/hr Documented by: Gentamicin Sulfate 100 mg/ (Sodium Chloride) 52.5 mls @ 100 mls/hr IV ONETIME ONE Stop: 03/23/20 05:42 Last Admin: 03/23/20 05:41 Dose: 100 mls/hr Documented by: Oxytocin/Sodium Chloride (Oxytocin 30 Unit/500 Ml-Ns) Confirm Administered Dose 30 unit in 500 mls @ as directed .ROUTE .STK-MED ONE Stop: 03/23/20 07:22 Lactated Ringer's (Ringers, Lactated) 1,000 mls @ 125 mls/hr IV ASDIRECTED [facility] Last Infusion: 03/24/20 00:52 Dose: 0 mls/hr Documented by: Oxytocin/Lactated Ringer's (Pitocin In Lr 30 Units/500 Ml) 30 unit in 500 mls @ 125 mls/hr IV TITRATE BLAISE; Protocol Tranexamic Acid 1,000 mg/ (Sodium Chloride) 110 mls @ 660 mls/hr IV ONETIME PRN PRN Reason: Bleeding Ibuprofen (Motrin) 800 mg PO Q8H PRN PRN Reason: mild pain or fever Last Admin: 03/25/20 07:56 Dose: 800 mg Documented by: Ketorolac Tromethamine (Toradol) Confirm Administered Dose 30 mg .ROUTE .STK-MED ONE Stop: 03/23/20 09:25 Ketorolac Tromethamine (Toradol) 30 mg IVPUSH Q6H [facility] Stop: 03/24/20 10:01 Last Admin: 03/24/20 09:48 Dose: 30 mg Documented by: Methylergonovine Maleate (Methergine) 0.2 mg IM ONETIME PRN PRN Reason: Excessive Vaginal Bleeding Misoprostol (Cytotec) 1,000 mcg RECTAL ONETIME PRN PRN Reason: excessive bleeding Morphine Sulfate (Duramorph Pf) Confirm Administered Dose 10 mg .ROUTE .STK-MED ONE Stop: 03/23/20 07:27 Naloxone HCl (Narcan) 0.1 mg IVPUSH ONETIME PRN PRN Reason: Respiratory Depression Stop: 03/24/20 08:54 Ondansetron HCl (Zofran) Confirm Administered Dose 4 mg .ROUTE .STK-MED ONE Stop: 03/23/20 07:19 Ondansetron HCl (Zofran) 4 mg IVPUSH Q4H PRN PRN Reason: Nausea/Vomiting Last Admin: 03/23/20 18:14 Dose: 4 mg Documented by: Oxycodone/Acetaminophen (Percocet 325-5 Mg) 1 tab PO Q4H PRN PRN Reason: Pain (moderate 4-6) Oxycodone/Acetaminophen (Percocet 325-5 Mg) 2 tab PO Q4H PRN PRN Reason: Pain (moderate 4-6) Last Admin: 03/25/20 16:36 Dose: 2 tab Documented by: Oxytocin (Pitocin) 10 unit IM ASDIRECTED PRN PRN Reason: Excessive Vaginal Bleeding Phenylephrine HCl (Jacoby-Synephrine) Confirm Administered Dose 10 mg .ROUTE .STK- MED ONE Stop: 03/23/20 07:19 Sodium Chloride (Saline Flush) 10 ml FLUSH ASDIRECTED PRN PRN Reason: Keep Vein Open Sodium Chloride (Saline Flush) 2.5 ml FLUSH ASDIRECTED PRN PRN Reason: Keep Vein Open Sodium Chloride (Normal Saline) 10 ml IV ASDIRECTED PRN PRN Reason: IV Use Sepsis Event Note - Evaluation Sepsis Screening Result: No Definite Risk - Problem List Review Problem List Initiated/Reviewed/Updated: Yes - Assessment Assessment:: 34 year old G2 now P2 POD #2 s/p routine repeat LTCS - Plan Plan:: Routine /postoperative cares * Blood type: O negative, pending infant lab results * Rubella immune * GBS positive- s/p IV antibiotics prior to delivery * Pain well controlled * Incision clean/dry/intact * Encourage ambulation and fluid intake * : nursing assistance PRN Dispo: stable. Patient was discharged on postoperative day #2 (03/25/2020) in stable condition. She had an unremarkable course. She was advised to use over the counter medications including Ibuprofen and Tylenol for pain management. Instructions for when to notify provider of symptoms were reviewed including fever/chills, intractable nausea/vomiting, severe pain not controlled by oral medications as listed above, or heavy vaginal bleeding with filling 1-2 pads per hour for more than 2 hours. Questions elicited and answered. Patient to follow up with Dr. Palma in 2 weeks for an incision check.
== END 2020-03-25 16:50 | disposition home or self-care (01) | DRG 788 ==
LOC: MW.OB 05:02
PROVIDERS: ADMIT Obstetrics & Gynecology; ATTEND Obstetrics & Gynecology
PROC: 10D00Z1 Extraction of Products of Conception, Low, Open Approach (ICD-10-PCS; principal; 2020-03-23)
DX: O34.211 Maternal care for low transverse scar from previous cesarean delivery (principal); O99.62 Diseases of the digestive system complicating childbirth; K21.9 Gastro-esophageal reflux disease without esophagitis; Z37.0 Single live birth; Z20.828 Contact with and (suspected) exposure to other viral communicable diseases; O99.52 Diseases of the respiratory system complicating childbirth; O99.824 Streptococcus B carrier state complicating childbirth; J45.909 Unspecified asthma, uncomplicated; Z3A.39 39 weeks gestation of pregnancy; Z91.09 Other allergy status, other than to drugs and biological substances; Z87.891 Personal history of nicotine dependence
CPT/HCPCS: 01961; 36415; 85007; 85014; 85018; 85027; 86592; 86780; 86850; 86900; 86901; A9270-GY; J1580; J1885; J2270; J2370; J2405; J2590; J3490; J7050; J7120; U0002

== ENCOUNTER 2021-03-31 10:02 | Emergency (ER) | payer BC, OTHER ==
--- NOTE | 2021-03-31 10:31 | EDM.PDOC ---
ED HPI GENERAL MEDICAL PROBLEM - General Chief Complaint: General Stated Complaint: PT STATED SHE THINKS SHE HAS A STAFF INFECTION Time Seen by Provider: 03/31/21 10:17 - History of Present Illness INITIAL COMMENTS - FREE TEXT/NARRATIVE: History of present illness: [] The patient noticed a red spot on her abdomen which is expanding. The patient does not have any systemic signs of infection. The red spots painful. It superficial in the right lower quadrant. The patient's baby has a rash for which the cloth shrinking machine operator has prescribed antibiotics. Review of systems: As per history of present illness and below otherwise all systems reviewed and negative. Past medical history: As per history of present illness and as reviewed below otherwise noncontributory. Surgical history: As per history of present illness and as reviewed below otherwise noncontributory. Social history: No reported history of drug or alcohol abuse. Family history: As per history of present illness and as reviewed below otherwise noncontributo ry. Physical exam: Constitutional - well developed, well-nourished and in no acute distress HEENT - normocephalic, no evidence of trauma - external nose and mouth normal - no mass in neck and no JVD - mucosae moist EYES - full EOM, PERRL, no icterus - no evidence of inflammation, injection, or drainage Respiratory - no respiratory distress, equal bilateral expansion GI -see below abdomen soft without distension or organomegaly - normal bowel sounds - no guard or rebound Musculoskeletal no gross deformity of long bones or joints - no tenderness, swelling or edema Neurologic - Alert and oriented times four - CN II-XII grossly intact - motor sensory and coordination symmetrically normal Psychiatric - appropriate mood and affect with normal thought content Hematologic - No petechiae or purpura - mucosa appropriate color and sclera not pale - normal nail bed color and refill Integument -there is a 10 cm x 4 cm area of erythema with slight warmth in the right lower quadrant of the abdomen. No rash or evidence of trauma - normal turgor Diagnostics: [] Therapeutics: [] Impression: [] Plan: [] Definitive disposition and diagnosis as appropriate pending reevaluation and review of above. Right Lower Abdomen Pain Score (Numeric/FACES): 4 - Related Data Allergies Allergy/AdvReac Type Severity Reaction Status Date / Time cat dander Allergy Unknown itchy/watery Verified 03/19/20 09:49 eyes dog dander Allergy Unknown itchy/watery Verified 03/19/20 09:49 eyes Penicillins Allergy Unknown Hives Verified 03/19/20 09:49 Home Meds: Home Meds Albuterol/Ipratropium [Combivent Respimat] 1 puff INH Q6H PRN 03/18/18 [History] Vit Calc,Iron,Folic [ Vitamins] 1 each PO DAILY 03/18/18 [History] Vitamin B Complex 1 cap PO DAILY 03/18/18 [History] valACYclovir HCl [valACYclovir] 1 tab PO DAILY PRN 03/18/18 [History] Calcium Carb/D3/Mag AA Chelate [Coral Calcium Capsule] 1 tab PO DAILY 03/19/20 [History] Calcium Carbonate [Tums] 1 tab.chew CHEW ASDIRECTED PRN 03/19/20 [History] [place]-3S/DHA/Epa/Fish Oil/D3 [[place]-3 + D Softgel] 1 tab PO DAILY 03/19/20 [History] Acetaminophen/oxyCODONE [Percocet 325-5 MG] 1 - 2 tab PO Q4H PRN 5 Days #20 tablet 03/23/20 [Rx] Ibuprofen [Motrin] 800 mg PO Q8H PRN 5 Days #30 tablet 03/23/20 [Rx] Sulfamethoxazole/Trimethoprim [Bactrim Ds Tablet] 1 each PO 20 #10 tablet 03/31/21 [Rx] Past Medical History HEENT History: Reports: None Cardiovascular History: Reports: None Respiratory History: Reports: Asthma Other Respiratory History: exercise size induced asthma Gastrointestinal History: Reports: GERD, Other (See Below) Other Gastrointestinal History: heartburn with Genitourinary History: Reports: None SEPARATOR INSERTER History: Reports: , Other (See Below) Other SEPARATOR INSERTER History: LEEP; Previous CS Musculoskeletal History: Reports: None Neurological History: Reports: Concussion Psychiatric History: Reports: Anxiety, Depression Other Psychiatric History: Hx of multiple pharmacological therapies with no improvement Endocrine/Metabolic History: Reports: None Hematologic History: Reports: None Immunologic History: Reports: None Oncologic (Cancer) History: Reports: None Dermatologic History: Reports: None - Past Surgical History Head Surgeries/Procedures: Reports: None HEENT Surgical History: Reports: Other (See Below) Cardiovascular Surgical History: Reports: None Respiratory Surgical History: Reports: None GI Surgical History: Reports: None Female Surgical History: Reports: Section, LEEP Endocrine Surgical History: Reports: None Neurological Surgical History: Reports: None Musculoskeletal Surgical History: Reports: None Oncologic Surgical History: Reports: None Dermatological Surgical History: Reports: None Social & Family History - Family History Family Medical History: No Pertinent Family History OBGYN: Reports: Neurological: Reports: Alzheimers Disease, Dementia Psychiatric: Reports: Schizophrenia, Other (See Below) Other Psychiatric Family History: Addiction Oncologic: Reports: Breast - Caffeine Use Caffeine Use: Reports: None ED ROS GENERAL - Review of Systems Review Of Systems: Comprehensive ROS is negative, except as noted in HPI. ED EXAM, GENERAL - Physical Exam Exam: See Below Free Text/Narrative:: My physical exam is in the HPI Course - Vital Signs Last Recorded V/S: Last Vital Signs Temp Pulse 134 H 03/31/21 10:10 Resp 15 03/31/21 10:10 BP 119/83 03/31/21 10:10 Pulse Ox 96 03/31/21 10:10 Departure - Departure Time of Disposition: 10:33 Disposition: Home, Self-Care 01 Condition: Good Clinical Impression: Cellulitis of abdominal wall - Discharge Information Instructions: Cellulitis, Adult, [id number] Referrals: Steven Palma MD [Primary Care Provider] - Additional Instructions: Warm compresses may help it resolve. If you have fever chills lightheadedness or other signs of illness you might want to return. If there is a golf ball or firm center area that may be drained and cultured. [facility] - Primary Care [address] [place] [id number] [id number] The following information is given to patients seen in the emergency department who are being discharged to home. This information is to outline your options for follow-up care. We provide all patients seen in our emergency department with a follow-up referral. The need for follow-up, as well as the timing and circumstances, are variable depending upon the specifics of your emergency department visit. If you don't have a primary care physician on staff, we will provide you with a referral. We always advise you to contact your personal physician following an emergency department visit to inform them of the circumstance of the visit and for follow-up with them and/or the need for any referrals to a consulting specialist. The emergency department will also refer you to a specialist when appropriate. This referral assures that you have the opportunity for follow-up care with a specialist. All of these measure are taken in an effort to provide you with optimal care, which includes your follow-up. Under all circumstances we always encourage you to contact your private physician who remains a resource for coordinating your care. When calling for follow-up care, please make the office aware that this follow-up is from your recent emergency room visit. If for any reason you are refused follow-up, please contact the [facility] Emergency Department at and asked to speak to the emergency department charge nurse. Sepsis Event Note (ED) - Evaluation Sepsis Screening Result: No Definite Risk - Focused Exam Vital Signs: Vital Signs Pulse Resp BP Pulse Ox 03/31/21 10:10 134 H 15 119/83 96
== END 2021-03-31 10:47 | disposition home or self-care (01) ==
LOC: MW.ED 10:02
DX: L03.311 Cellulitis of abdominal wall (principal); J45.909 Unspecified asthma, uncomplicated; Z91.048 Other nonmedicinal substance allergy status; Z88.0 Allergy status to penicillin; Z79.899 Other long term (current) drug therapy
CPT/HCPCS: 99283

== ENCOUNTER 2021-04-01 11:23 | Inpatient (IN) | payer BC ==
[2021-04-01] MEDS ORDERED: Sodium Chloride 0.9% 1,000 ML IV ONE ×2 (11:52)
[2021-04-01] MEDS ORDERED: Clindamycin Phosphate in D5W 600 MG in Premix Bag 1 BAG IV ONE ×2 (11:54)
[2021-04-01] MEDS ORDERED: Ketorolac 30 MG/ML SDV IVPUSH ONE (11:55)
[2021-04-01 12:43] LABS: BLOOD UREA NITROGEN,BUN 11 mg/dL (7.0-18.0); CARBON DIOXIDE,CO2 25.4 mmol/L (21.0-32.0); CHLORIDE,CL 97 mmol/L (98-107); GLUCOSE RANDOM 114 mg/dL (74-106); POTASSIUM,K 4.2 mmol/L (3.5-5.1); SODIUM,NA 135 mmol/L (136-145)
[2021-04-01] MEDS ORDERED: Iopamidol 755 MG/ML 500 ML Multipack Bottle IVPUSH STA ×2 (13:30→13:58)
--- NOTE | 2021-04-01 14:23 | CT ---
INDICATION: Abdominal cellulitis/sepsis. TECHNIQUE: CT abdomen and pelvis acquired with 100 cc Isovue 370 IV contrast. COMPARISON: None. FINDINGS: Lower chest: Unremarkable. Liver: Unremarkable. Normal in size and attenuation. No suspicious masses. Gallbladder and bile ducts: Unremarkable. No stones or inflammation. No biliary dilatation. Pancreas: Unremarkable. No mass or inflammation. Spleen: Unremarkable. Normal in size. No masses. Adrenal glands: Unremarkable. No nodules. Kidneys: Unremarkable except for right renal malrotation. No suspicious masses, stones, or hydronephrosis. GI tract: Unremarkable. Normal in caliber. No sign of mass or inflammation. Normal appendix. Vasculature: Unremarkable. Mesenteric arteries are patent. Lymph nodes: No lymphadenopathy. Omentum/Peritoneum/Abdominal Wall: There is skin thickening with dense subcutaneous inflammation in the right flank. No fluid collection to suggest abscess. No intra-abdominal inflammation, free fluid or free air. Pelvis: Unremarkable. Bones: Unremarkable for age. IMPRESSION: Right flank cellulitis with dense subcutaneous inflammation but no defined abscess. Remainder of the exam is unremarkable. Please note that all CT scans at this facility use dose modulation, iterative reconstruction, and/or weight-based dosing when appropriate to reduce radiation dose to as low as reasonably achievable. Dictated by Clovis Decker MD @ 04/01/2021 2:21:31 PM (Electronically Signed)
--- NOTE | 2021-04-01 14:49 | EDM.PDOC ---
ED HPI GENERAL MEDICAL PROBLEM - General Chief Complaint: General Stated Complaint: FROM WALK IN CLINIC/ POSS MRSA Time Seen by Provider: 04/01/21 11:38 Source of Information: Reports: Patient History Limitations: Reports: No Limitations - History of Present Illness INITIAL COMMENTS - FREE TEXT/NARRATIVE: HISTORY AND PHYSICAL: History of present illness: Patient is a 35-year-old female who presents emergency room today with concern of worsening cellulitis infection of her abdominal wall. Patient states that she was seen here and evaluated in the emergency room yesterday and was given Bactrim. Patient states she took 2 doses yesterday and 1 dose today and states that she has had worsening infection and it is spreading quickly and she began developing a fever last night/early this morning around 102 orally at home. Patient states that she has been taking Tylenol for the fever which has been reducing it. Patient states that she made an appointment at the clinic and was instructed to come to the emergency room due to the significant infection. Patient states that she is currently breast-feeding at this time does not believe to be . Patient denies fever, chills, chest pain, shortness of breath, or cough. Denies headache, neck stiff ness, change in vision, syncope, or near syncope. Denies nausea, vomiting, abdominal pain, diarrhea, constipation, or dysuria. Has not noted any blood in urine or stool. Patient has been eating and drinking appropriately. Review of systems: As per history of present illness and below otherwise all systems reviewed and negative. Past medical history: As per history of present illness and as reviewed below otherwise noncontributory. Surgical history: As per history of present illness and as reviewed below otherwise noncontributory. Social history: See social history for further information Family history: As per history of present illness and as reviewed below otherwise noncontributory. Physical exam: General: Patient is alert, oriented, and in no acute distress. Patient sitting comfortably on exam table. Patient is tachycardic 130s on exam but is tearful on exam and anxious appearing. Vitals otherwise stable and reviewed by me. HEENT: Atraumatic, normocephalic, pupils equal and reactive bilaterally, negative for conjunctival pallor or scleral icterus, mucous membranes moist, neck supple, nontender, trachea midline. No drooling or trismus noted. No meningeal signs. No hot potato voice noted. Lungs: Clear to auscultation, breath sounds equal bilaterally, chest nontender. Heart: S1S2, regular rate and rhythm without overt murmur Abdomen: Patient does have a large area of cellulitis to he right lower pannus of the abdominal wall without obvious palpable abscess. Otherwise, soft, nondist ended, nontender. Negative for masses or hepatosplenomegaly. Negative for costovertebral tenderness. Pelvis: Stable nontender. Genitourinary: Deferred. Rectal: Deferred. Skin: Intact, warm, dry. No lesions or rashes noted. Extremities: Atraumatic, negative for cords or calf pain. Neurovascular unremarkable. Neuro: Awake, alert, oriented. Cranial nerves II through XII unremarkable. Cerebellum unremarkable. Motor and sensory unremarkable throughout. Exam nonfocal. Notes: Patient is a 35-year-old female who presents emergency room today with concern of worsening cellulitis with developing fever today of her abdominal wall. Upon arrival to the ED, patient is tachycardic 130s on exam but is tearful and anxious appearing on exam. Patient does have a large area of cellulitis of her abdominal wall in the right lower portion of the pannus without palpable abscess at this time, however full examination is limited due to patient discomfort. I did outline this area using a surgical marker today. Upon chart review, patient was seen in the emergency room yesterday and diagnosed with cellulitis of the abdominal wall and was sent home on Bactrim. Patient states that she is taking a total of 3 tabs since her visit in the emergency room and states that it has continued to spread and now has developed a fever and generalized body aches. Will obtain IV access, provide IV clindamycin (given patient has allergy to penicillin), 2 L cc bolus while awaiting lab work, blood cultures x2, lactate, and will also obtain abdominal pelvic CT scan looking for possible deep seeded abscess versus fistula CBC shows mild leukocytosis at 11.29, otherwise CBC unremarkable. CMP shows mild hyponatremia and hyperchloremia of 135 and 97 respectively. Lactate is within normal limits. Isolated total bilirubin at 2.4, in isolation is nonspecific at this time,, hCG is negative. COVID-19 negative. Influenza negative. Abdominal pelvic CT scan shows right flank cellulitis with dense subcutaneous inflammation but no defined abscess. Remainder of exam is unremarkable. Upon reevaluation of patient, she has improvement of her tachycardia to approximately 110s to 115's and states that she is feeling better with therapeutics given today in the emergency room. Given patient having worsening symptoms despite outpatient oral antibiotic trial, feel that patient requires inpatient admission for continued IV antibiotics and frequent examination of area of infection. I did call and speak to the hospitalist on-call, Dr. Shannon, and thoroughly discussed patient's case. Will admit to Dr. Shannon inpatient. Voices understanding and is agreeable to plan of care. Denies any further questions or concerns at this time. Diagnostics: CBC, CMP, hCG, lactate, blood cultures x2, COVID-19, influenza, abdominal pelvic CT with contrast Therapeutics: Normal saline, Toradol, clindamycin IV Impression: Abdominal wall cellulitis Plan: Admit to inpatient to Dr. Shannon Definitive disposition and diagnosis as appropriate pending reevaluation and review of above. Generalized Pain Score (Numeric/FACES): 8 - Related Data Allergies Allergy/AdvReac Type Severity Reaction Status Date / Time cat dander Allergy Unknown itchy/watery Verified 04/01/21 16:53 eyes dog dander Allergy Unknown itchy/watery Verified 04/01/21 16:53 eyes Penicillins Allergy Unknown Hives Verified 04/01/21 16:53 Home Meds: Home Meds Albuterol/Ipratropium [Combivent Respimat] 1 puff INH Q6H PRN 03/18/18 [History] Vit Calc,Iron,Folic [ Vitamins] 1 each PO DAILY 03/18/18 [History] valACYclovir HCl [valACYclovir] 1 tab PO DAILY PRN 03/18/18 [History] Sulfamethoxazole/Trimethoprim [Bactrim Ds Tablet] 1 each PO 20 #10 tablet 03/31/21 [Rx] Past Medical History - Past Health History Medical/Surgical History: Denies Medical/Surgical History HEENT History: Reports: None Cardiovascular History: Reports: None Respiratory History: Reports: Asthma Other Respiratory History: exercise size induced asthma Gastrointestinal History: Reports: GERD, Other (See Below) Other Gastrointestinal History: heartburn with Genitourinary History: Reports: None BREASTFEEDING EDUCATOR History: Reports: , Other (See Below) Other BREASTFEEDING EDUCATOR History: LEEP; Previous CS Musculoskeletal History: Reports: None Neurological History: Reports: Concussion Psychiatric History: Reports: Anxiety, Depression Other Psychiatric History: Hx of multiple pharmacological therapies with no improvement Endocrine/Metabolic History: Reports: None Hematologic History: Reports: None Immunologic History: Reports: None Oncologic (Cancer) History: Reports: None Dermatologic History: Reports: None - Infectious Disease History 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, Herpes, MRSA - Past Surgical History Head Surgeries/Procedures: Reports: None HEENT Surgical History: Reports: Other (See Below) Other HEENT Surgeries/Procedures: Leary teeth extraction Cardiovascular Surgical History: Reports: None Respiratory Surgical History: Reports: None GI Surgical History: Reports: None Female Surgical History: Reports: Section, LEEP Endocrine Surgical History: Reports: None Neurological Surgical History: Reports: None Musculoskeletal Surgical History: Reports: None Oncologic Surgical History: Reports: None Dermatological Surgical History: Reports: None Social & Family History - Family History Family Medical History: No Pertinent Family History OBGYN: Reports: Neurological: Reports: Alzheimers Disease, Dementia Psychiatric: Reports: Schizophrenia, Other (See Below) Other Psychiatric Family History: Addiction Oncologic: Reports: Breast - Tobacco Use Tobacco Use Status *Q: Never Tobacco User - Caffeine Use Caffeine Use: Reports: None - Recreational Drug Use Recreational Drug Use: No ED ROS GENERAL - Review of Systems Review Of Systems: Comprehensive ROS is negative, except as noted in HPI. ED EXAM, GENERAL - Physical Exam Exam: See Below (See dictation) Course - Vital Signs Last Recorded V/S: Last Vital Signs Temp 100 F 04/01/21 17:38 Pulse 103 H 04/01/21 16:42 Resp 18 04/01/21 16:42 BP 115/74 04/01/21 16:42 Pulse Ox 99 04/01/21 16:42 - Orders/Labs/Meds Orders: Active Orders 24 hr Category Date Time Status CULTURE BLOOD [BC] Stat Lab 04/01/21 11:45 Received CULTURE BLOOD [BC] Stat Lab 04/01/21 12:14 Received Blood Culture x2 Reflex Set [OM.PC] Stat Oth 04/01/21 11:53 Ordered Medication Orders Acetaminophen (Acetaminophen 325 Mg Tab) 650 mg PO Q4H PRN PRN Reason: Pain (Mild 1-3)/fever Last Admin: 04/01/21 17:38 Dose: 650 mg Documented by: PUEPBRI Clindamycin Phosphate 600 mg/ (Sodium Chloride) 54 mls @ 100 mls/hr IV Q8H [facility] Vancomycin HCl 1.5 gm/ Premix 300 mls @ 200 mls/hr IV Q8H [facility] Last Admin: 04/01/21 17:26 Dose: 200 mls/hr Documented by: SEAN Ondansetron HCl (Ondansetron 4 Mg/2 Ml Sdv) 4 mg IVPUSH Q4H PRN PRN Reason: Nausea/Vomiting Last Admin: 04/01/21 17:26 Dose: 4 mg Documented by: SEAN Vancomycin HCl (Pharmacy To Dose - Vancomycin) 1 dose .XX ASDIRECTED [facility] Labs: Laboratory Tests 04/01/21 04/01/21 04/01/21 Range/Units 11:45 11:45 11:45 WBC 11.29 H (4.0-11.0) K/uL RBC 4.66 (4.30-5.90) M/uL Hgb 13.8 (12.0-16.0) g/dL Hct 41.4 (36.0-46.0) % MCV 88.8 (80.0-98.0) fL MCH 29.6 (27.0-32.0) pg MCHC 33.3 (31.0-37.0) g/dL RDW Std Deviation 40.2 (28.0-62.0) fl RDW Coeff of Nadege 13 (11.0-15.0) % Plt Count 191 (150-400) K/uL MPV 10.90 (7.40-12.00) fL Neut % (Auto) 76.5 (48.0-80.0) % Lymph % (Auto) 14.4 L (16.0-40.0) % [place] % (Auto) 8.8 (0.0-15.0) % Eos % (Auto) 0.2 (0.0-7.0) % Baso % (Auto) 0.1 (0.0-1.5) % Neut # (Auto) 8.6 H (1.4-5.7) K/uL Lymph # (Auto) 1.6 (0.6-2.4) K/uL [place] # (Auto) 1.0 H (0.0-0.8) K/uL Eos # (Auto) 0.0 (0.0-0.7) K/uL Baso # (Auto) 0.0 (0.0-0.1) K/uL Sodium 135 L (136-145) mmol/L Potassium 4.2 (3.5-5.1) mmol/L Chloride 97 L (98-107) mmol/L Carbon Dioxide 25.4 (21.0-32.0) mmol/L BUN 11 (7.0-18.0) mg/dL Creatinine 0.9 (0.6-1.0) mg/dL Est Cr Clr Drug Dosing 88.01 mL/min Estimated GFR (MDRD) > 60.0 ml/min Glucose 114 H (74-106) mg/dL Lactic Acid (0.4-2.0) mmol/L Calcium 9.2 (8.5-10.1) mg/dL Total Bilirubin 2.4 H (0.2-1.0) mg/dL AST 23 (15-37) IU/L ALT 21 (14-63) IU/L Alkaline Phosphatase 93 (46-116) U/L Total Protein 7.8 (6.4-8.2) g/dL Albumin 3.7 (3.4-5.0) g/dL Globulin 4.1 H (2.6-4.0) g/dL Albumin/Globulin Ratio 0.9 (0.9-1.6) HCG, Qual NEGATIVE (NEG) SARS-CoV-2 RNA (BUNNY) (NEGATIVE) 04/01/21 04/01/21 Range/Units 12:14 12:35 WBC (4.0-11.0) K/uL RBC (4.30-5.90) M/uL Hgb (12.0-16.0) g/dL Hct (36.0-46.0) % MCV (80.0-98.0) fL MCH (27.0-32.0) pg MCHC (31.0-37.0) g/dL RDW Std Deviation (28.0-62.0) fl RDW Coeff of Nadege (11.0-15.0) % Plt Count (150-400) K/uL MPV (7.40-12.00) fL Neut % (Auto) (48.0-80.0) % Lymph % (Auto) (16.0-40.0) % [place] % (Auto) (0.0-15.0) % Eos % (Auto) (0.0-7.0) % Baso % (Auto) (0.0-1.5) % Neut # (Auto) (1.4-5.7) K/uL Lymph # (Auto) (0.6-2.4) K/uL [place] # (Auto) (0.0-0.8) K/uL Eos # (Auto) (0.0-0.7) K/uL Baso # (Auto) (0.0-0.1) K/uL Sodium (136-145) mmol/L Potassium (3.5-5.1) mmol/L Chloride (98-107) mmol/L Carbon Dioxide (21.0-32.0) mmol/L BUN (7.0-18.0) mg/dL Creatinine (0.6-1.0) mg/dL Est Cr Clr Drug Dosing mL/min Estimated GFR (MDRD) ml/min Glucose (74-106) mg/dL Lactic Acid 1.4 (0.4-2.0) mmol/L Calcium (8.5-10.1) mg/dL Total Bilirubin (0.2-1.0) mg/dL AST (15-37) IU/L ALT (14-63) IU/L Alkaline Phosphatase (46-116) U/L Total Protein (6.4-8.2) g/dL Albumin (3.4-5.0) g/dL Globulin (2.6-4.0) g/dL Albumin/Globulin Ratio (0.9-1.6) HCG, Qual (NEG) SARS-CoV-2 RNA (BUNNY) NEGATIVE (NEGATIVE) Meds: Medications Generic Name Dose Route Start Last Admin Trade Name Freq PRN Reason Stop Dose Admin Acetaminophen 650 mg 04/01/21 15:51 04/01/21 17:38 Acetaminophen 325 Mg Tab PO 650 mg Q4H PRN Administration Pain (Mild 1-3)/fever Clindamycin Phosphate 600 mg/ 54 mls @ 100 mls/hr 04/01/21 20:00 Sodium Chloride IV Q8H [facility] Vancomycin HCl 1.5 gm/ Premix 300 mls @ 200 mls/hr 04/01/21 16:30 04/01/21 17:26 IV 200 mls/hr Q8H [facility] Administration Ondansetron HCl 4 mg 04/01/21 15:52 04/01/21 17:26 Ondansetron 4 Mg/2 Ml Sdv IVPUSH 4 mg Q4H PRN Administration Nausea/Vomiting Vancomycin HCl 1 dose 04/01/21 16:00 Pharmacy To Dose - Vancomycin .XX ASDIRECTED BLAISE Discontinued Medications Generic Name Dose Route Start Last Admin Trade Name Freq PRN Reason Stop Dose Admin Sodium Chloride 1,000 mls @ 999 mls/hr 04/01/21 11:52 04/01/21 12:27 Normal Saline IV 04/01/21 12:52 999 mls/hr BOLUS ONE Administration Sodium Chloride 1,000 mls @ 999 mls/hr 04/01/21 11:52 04/01/21 12:27 Normal Saline IV 04/01/21 12:52 999 mls/hr STAT ONE Administration Clindamycin Phosphate 600 mg/ 50 mls @ 100 mls/hr 04/01/21 11:54 04/01/21 12:30 Premix IV 04/01/21 12:23 100 mls/hr ONETIME ONE Administration Iopamidol 100 ml 04/01/21 13:30 04/01/21 13:30 Iopamidol 755 Mg/Ml 500 Ml Multipack Bottle IVPUSH 04/01/21 13:31 100 ml ONETIME STA Administration Iopamidol 100 ml 04/01/21 13:58 Iopamidol 755 Mg/Ml 500 Ml Multipack Bottle IVPUSH 04/01/21 13:59 ONETIME STA Ketorolac Tromethamine 30 mg 04/01/21 11:55 04/01/21 12:33 Ketorolac 30 Mg/Ml Sdv IVPUSH 04/01/21 11:56 Not Given ONETIME ONE Departure - Departure Time of Disposition: 14:49 Disposition: Admitted As Inpatient 66 Clinical Impression: Cellulitis Qualifiers: Site of cellulitis: trunk Site of cellulitis of trunk: abdominal wall Qualified Code(s): L03.311 - Cellulitis of abdominal wall - Discharge Information Sepsis Event Note (ED) - Evaluation Sepsis Screening Result: No Definite Risk - Focused Exam Vital Signs: Vital Signs Temp Pulse Resp BP Pulse Ox 04/01/21 14:38 112 H 17 140/69 98 04/01/21 11:38 97.7 F 136 H 18 128/96 H 97 - My Orders Last 24 Hours: My Active Orders 04/01/21 11:45 CULTURE BLOOD [BC] Stat 04/01/21 11:53 Blood Culture x2 Reflex Set [OM.PC] Stat 04/01/21 12:14 CULTURE BLOOD [BC] Stat - Assessment/Plan Last 24 Hours: My Active Orders 04/01/21 11:45 CULTURE BLOOD [BC] Stat 04/01/21 11:53 Blood Culture x2 Reflex Set [OM.PC] Stat 04/01/21 12:14 CULTURE BLOOD [BC] Stat
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
[2021-04-01] MEDS ORDERED: Ondansetron 4 MG/2 ML SDV IVPUSH PRN (15:52)
[2021-04-01] MEDS: VANCOmycin 1.5 GM/300 ML 1.5 GM in Premix Bag 1 BAG IV SCH (17:26)
[2021-04-01] MEDS: Acetaminophen 325 MG Tab PO PRN (17:38)
[2021-04-01] MEDS: Enoxaparin 40 MG/0.4 ML Syringe SUBCUT SCH (18:26)
[2021-04-01] MEDS: Clindamycin Phosphate in D5W 50 ML IV SCH (20:18)
[2021-04-01] MEDS ORDERED: LORazepam 1 MG Tab PO PRN (22:49)
[2021-04-02] MEDS: VANCOmycin 1.5 GM/300 ML 1.5 GM in Premix Bag 1 BAG IV SCH ×3 (00:08→18:36)
[2021-04-02] MEDS: Acetaminophen 325 MG Tab PO PRN ×3 (00:08→20:20)
[2021-04-02] MEDS: Clindamycin Phosphate in D5W 50 ML IV SCH ×3 (04:47→20:20)
[2021-04-02 07:50] LABS: BLOOD UREA NITROGEN,BUN 8 mg/dL (7.0-18.0); CARBON DIOXIDE,CO2 23.3 mmol/L (21.0-32.0); CHLORIDE,CL 104 mmol/L (98-107); GLUCOSE RANDOM 98 mg/dL (74-106); POTASSIUM,K 4.2 mmol/L (3.5-5.1); SODIUM,NA 140 mmol/L (136-145)
--- NOTE | 2021-04-02 14:50 | PCM.PN ---
- General Info Date of Service: 04/02/21 Subjective Update: Patient states decreased tenderness of the cellulitic area. Patient states she feels better and states less joint muscle aches this morning. - Review of Systems General: Denies: Fever, Chills Pulmonary: Denies: Shortness of Breath Cardiovascular: Denies: Palpitations, Dyspnea on Exertion, Orthopnea, Edema Gastrointestinal: Denies: Abdominal Pain, Decreased Appetite, Diarrhea, Nausea, Vomiting Neurological: Denies: Confusion, Dizziness, Headache Psychiatric: Denies: Confusion - Patient Data Vitals - Most Recent: Last Vital Signs Temp 99.4 F 04/02/21 08:14 Pulse 99 04/02/21 08:14 Resp 18 04/02/21 08:14 BP 117/79 04/02/21 08:14 Pulse Ox 96 04/02/21 08:14 Weight - Most Recent: 211 lb 10.3 oz Lab Results Last 24 Hours: Laboratory Results - last 24 hr 04/02/21 04/02/21 Range/Units 07:05 07:05 WBC 8.77 (4.0-11.0) K/uL RBC 3.95 L (4.30-5.90) M/uL Hgb 11.7 L (12.0-16.0) g/dL Hct 36.0 (36.0-46.0) % MCV 91.1 (80.0-98.0) fL MCH 29.6 (27.0-32.0) pg MCHC 32.5 (31.0-37.0) g/dL RDW Std Deviation 41.0 (28.0-62.0) fl RDW Coeff of Nadege 13 (11.0-15.0) % Plt Count 162 (150-400) K/uL MPV 11.20 (7.40-12.00) fL Neut % (Auto) 67.8 (48.0-80.0) % Lymph % (Auto) 19.3 (16.0-40.0) % [place] % (Auto) 10.9 (0.0-15.0) % Eos % (Auto) 1.8 (0.0-7.0) % Baso % (Auto) 0.2 (0.0-1.5) % Neut # (Auto) 5.9 H (1.4-5.7) K/uL Lymph # (Auto) 1.7 (0.6-2.4) K/uL [place] # (Auto) 1.0 H (0.0-0.8) K/uL Eos # (Auto) 0.2 (0.0-0.7) K/uL Baso # (Auto) 0.0 (0.0-0.1) K/uL Sodium 140 (136-145) mmol/L Potassium 4.2 (3.5-5.1) mmol/L Chloride 104 (98-107) mmol/L Carbon Dioxide 23.3 (21.0-32.0) mmol/L BUN 8 (7.0-18.0) mg/dL Creatinine 0.8 (0.6-1.0) mg/dL Est Cr Clr Drug Dosing 99.01 mL/min Estimated GFR (MDRD) > 60.0 ml/min Glucose 98 (74-106) mg/dL Calcium 8.1 L (8.5-10.1) mg/dL Total Bilirubin 1.4 H (0.2-1.0) mg/dL AST 13 L (15-37) IU/L ALT 17 (14-63) IU/L Alkaline Phosphatase 80 (46-116) U/L Total Protein 6.5 (6.4-8.2) g/dL Albumin 3.0 L (3.4-5.0) g/dL Globulin 3.5 (2.6-4.0) g/dL Albumin/Globulin Ratio 0.9 (0.9-1.6) Marcio Results Last 24 Hours: Microbiology 04/01/21 12:14 Aerobic Blood Culture - Preliminary Blood - Venous NO GROWTH AFTER 1 DAY Anaerobic Blood Culture - Preliminary NO GROWTH AFTER 1 DAY 04/01/21 11:45 Aerobic Blood Culture - Preliminary Blood - Venous - Lab Draw NO GROWTH AFTER 1 DAY Anaerobic Blood Culture - Preliminary NO GROWTH AFTER 1 DAY 04/01/21 12:35 Influenza Type A Antigen Screen - Final Nasopharyngeal Swab NEGATIVE INFLUENZA A VIRUS AG REFERENCE RANGE: NEGATIVE Influenza Type B Antigen Screen - Final NEGATIVE INFLUENZA B VIRUS AG REFERENCE RANGE: NEGATIVE Med Orders - Current: Current Medications Acetaminophen (Acetaminophen 325 Mg Tab) 650 mg PO Q4H PRN PRN Reason: Pain (Mild 1-3)/fever Last Admin: 04/02/21 11:55 Dose: 650 mg Documented by: Diphenhydramine HCl (Diphenhydramine 25 Mg Cap) 25 mg PO ONETIME PRN PRN Reason: Insomnia Enoxaparin Sodium (Enoxaparin 40 Mg/0.4 Ml Syringe) 40 mg SUBCUT Q24H [facility] Last Admin: 04/01/21 18:26 Dose: 40 mg Documented by: Vancomycin HCl 1.5 gm/ Premix 300 mls @ 200 mls/hr IV Q8H BLAISE Last Admin: 04/02/21 08:16 Dose: 200 mls/hr Documented by: Clindamycin Phosphate (Cleocin In D5w 600 Mg/50 Ml) 50 mls @ 100 mls/hr IV Q8H [facility] Last Admin: 04/02/21 11:55 Dose: 100 mls/hr Documented by: Influenza Virus Vaccine (Flu Vacc [id number](6mos Up)/Pf 60 Mcg/0.5 Ml Syringe) 60 mcg IM .ONCE ONE Stop: 04/05/21 11:16 Lorazepam (Lorazepam 1 Mg Tab) 0.5 mg PO ONETIME PRN PRN Reason: Anxiety Last Admin: 04/02/21 00:08 Dose: 0.5 mg Documented by: Ondansetron HCl (Ondansetron 4 Mg/2 Ml Sdv) 4 mg IVPUSH Q4H PRN PRN Reason: Nausea/Vomiting Last Admin: 04/01/21 17:26 Dose: 4 mg Documented by: Vancomycin HCl (Pharmacy To Dose - Vancomycin) 1 dose .XX ASDIRECTED [facility] Discontinued Medications Sodium Chloride (Normal Saline) 1,000 mls @ 999 mls/hr IV BOLUS ONE Stop: 04/01/21 12:52 Last Admin: 04/01/21 12:27 Dose: 999 mls/hr Documented by: Sodium Chloride (Normal Saline) 1,000 mls @ 999 mls/hr IV STAT ONE Stop: 04/01/21 12:52 Last Admin: 04/01/21 12:27 Dose: 999 mls/hr Documented by: Clindamycin Phosphate 600 mg/ (Premix) 50 mls @ 100 mls/hr IV ONETIME ONE Stop: 04/01/21 12:23 Last Admin: 04/01/21 12:30 Dose: 100 mls/hr Documented by: Clindamycin Phosphate 600 mg/ (Sodium Chloride) 54 mls @ 100 mls/hr IV Q8H [facility] Last Admin: 04/01/21 20:28 Dose: Not Given Documented by: Influenza Virus Vaccine (Pharmacy To Dose - Influenza Vaccine) 1 each IM ONETIME ONE Stop: 04/02/21 11:00 Iopamidol (Iopamidol 755 Mg/Ml 500 Ml Multipack Bottle) 100 ml IVPUSH ONETIME STA Stop: 04/01/21 13:31 Last Admin: 04/01/21 13:30 Dose: 100 ml Documented by: Iopamidol (Iopamidol 755 Mg/Ml 500 Ml Multipack Bottle) 100 ml IVPUSH ONETIME STA Stop: 04/01/21 13:59 Ketorolac Tromethamine (Ketorolac 30 Mg/Ml Sdv) 30 mg IVPUSH ONETIME ONE Stop: 04/01/21 11:56 Last Admin: 04/01/21 12:33 Dose: Not Given Documented by: - Exam General: Alert, Oriented Lungs: Clear to Auscultation, Normal Respiratory Effort Cardiovascular: Regular Rate, Regular Rhythm GI/Abdominal Exam: Soft, Non-Tender, No Distention Extremities: No Pedal Edema Skin: Other (Area of erythema, tenderness noted over the right oblique region. Mild diffusion since yesterday) - Patient Data Lab Results Last 24 hrs: Laboratory Results - last 24 hr 04/02/21 04/02/21 Range/Units 07:05 07:05 WBC 8.77 (4.0-11.0) K/uL RBC 3.95 L (4.30-5.90) M/uL Hgb 11.7 L (12.0-16.0) g/dL Hct 36.0 (36.0-46.0) % MCV 91.1 (80.0-98.0) fL MCH 29.6 (27.0-32.0) pg MCHC 32.5 (31.0-37.0) g/dL RDW Std Deviation 41.0 (28.0-62.0) fl RDW Coeff of Nadege 13 (11.0-15.0) % Plt Count 162 (150-400) K/uL MPV 11.20 (7.40-12.00) fL Neut % (Auto) 67.8 (48.0-80.0) % Lymph % (Auto) 19.3 (16.0-40.0) % [place] % (Auto) 10.9 (0.0-15.0) % Eos % (Auto) 1.8 (0.0-7.0) % Baso % (Auto) 0.2 (0.0-1.5) % Neut # (Auto) 5.9 H (1.4-5.7) K/uL Lymph # (Auto) 1.7 (0.6-2.4) K/uL [place] # (Auto) 1.0 H (0.0-0.8) K/uL Eos # (Auto) 0.2 (0.0-0.7) K/uL Baso # (Auto) 0.0 (0.0-0.1) K/uL Sodium 140 (136-145) mmol/L Potassium 4.2 (3.5-5.1) mmol/L Chloride 104 (98-107) mmol/L Carbon Dioxide 23.3 (21.0-32.0) mmol/L BUN 8 (7.0-18.0) mg/dL Creatinine 0.8 (0.6-1.0) mg/dL Est Cr Clr Drug Dosing 99.01 mL/min Estimated GFR (MDRD) > 60.0 ml/min Glucose 98 (74-106) mg/dL Calcium 8.1 L (8.5-10.1) mg/dL Total Bilirubin 1.4 H (0.2-1.0) mg/dL AST 13 L (15-37) IU/L ALT 17 (14-63) IU/L Alkaline Phosphatase 80 (46-116) U/L Total Protein 6.5 (6.4-8.2) g/dL Albumin 3.0 L (3.4-5.0) g/dL Globulin 3.5 (2.6-4.0) g/dL Albumin/Globulin Ratio 0.9 (0.9-1.6) Result Diagrams: 04/02/21 07:05 04/02/21 07:05 Marcio Results Last 24 hrs: Microbiology 04/01/21 12:14 Aerobic Blood Culture - Preliminary Blood - Venous NO GROWTH AFTER 1 DAY Anaerobic Blood Culture - Preliminary NO GROWTH AFTER 1 DAY 04/01/21 11:45 Aerobic Blood Culture - Preliminary Blood - Venous - Lab Draw NO GROWTH AFTER 1 DAY Anaerobic Blood Culture - Preliminary NO GROWTH AFTER 1 DAY 04/01/21 12:35 Influenza Type A Antigen Screen - Final Nasopharyngeal Swab NEGATIVE INFLUENZA A VIRUS AG REFERENCE RANGE: NEGATIVE Influenza Type B Antigen Screen - Final NEGATIVE INFLUENZA B VIRUS AG REFERENCE RANGE: NEGATIVE Sepsis Event Note - Evaluation Sepsis Screening Result: No Definite Risk - Focused Exam Vital Signs: Vital Signs Temp Pulse Resp BP Pulse Ox 04/02/21 08:14 99.4 F 99 18 117/79 96 04/02/21 04:47 98.3 F 92 16 118/69 96 - Problem List & Annotations (1) delivery delivered SNOMED Code(s): 189785205 Code(s): O82 - ENCOUNTER FOR DELIVERY WITHOUT INDICATION Status: Acute Current Visit: No (2) Cellulitis SNOMED Code(s): 288645097 Code(s): L03.90 - CELLULITIS, UNSPECIFIED Status: Acute Current Visit: Yes Qualifiers: Site of cellulitis: trunk Site of cellulitis of trunk: abdominal wall Qualified Code(s): L03.311 - Cellulitis of abdominal wall - Problem List Review Problem List Initiated/Reviewed/Updated: Yes - My Orders Last 24 Hours: My Active Orders 04/01/21 15:51 Oxygen Therapy [RC] PRN VTE/DVT Education [RC] PER UNIT ROUTINE Vital Signs [RC] Q4H Acetaminophen [TylenoL] 650 mg PO Q4H PRN Resuscitation Status Routine 04/01/21 15:52 Ondansetron [Zofran] 4 mg IVPUSH Q4H PRN 04/01/21 16:00 Pharmacy to Dose - Vancomycin 1 dose .XX ASDIRECTED 04/01/21 16:30 VANCOmycin 1.5 GM/300 ML 1.5 gm Premix Bag 1 bag IV Q8H 04/01/21 18:30 Enoxaparin [Lovenox] 40 mg SUBCUT Q24H 04/01/21 20:30 Clindamycin Phosphate in D5W [Cleocin in D5W 600 MG/50 ML] 50 ml IV Q8H 04/02/21 21:00 diphenhydrAMINE [Benadryl] 25 mg PO ONETIME PRN - Plan Plan:: Cellulitis of the right abdominal oblique area- Resume IV Vancomycin, IV clindamycin 600mg TID, WBC down today to 8.7 Zofran 4mg q4hr nausea/vomiting, tylenol fever/headache Patient eating and drinking well, IV fluids as needed Lovenox q24hr
[2021-04-02] MEDS: VANCOmycin 1.75 GM/350 ML 1.75 GM in Premix Bag 1 BAG IV SCH (17:49)
[2021-04-02] MEDS: Enoxaparin 40 MG/0.4 ML Syringe SUBCUT SCH (18:00)
[2021-04-02] MEDS ORDERED: diphenhydrAMINE 25 MG Cap PO PRN (21:00)
[2021-04-03] MEDS: VANCOmycin 1.75 GM/350 ML 1.75 GM in Premix Bag 1 BAG IV SCH ×3 (00:31→18:09)
[2021-04-03] MEDS: traZODone 50 MG Tab PO PRN (00:31)
[2021-04-03] MEDS: Clindamycin Phosphate in D5W 50 ML IV SCH ×3 (05:18→20:55)
[2021-04-03 07:12] LABS: BLOOD UREA NITROGEN,BUN 10 mg/dL (7.0-18.0); CARBON DIOXIDE,CO2 23.5 mmol/L (21.0-32.0); CHLORIDE,CL 103 mmol/L (98-107); GLUCOSE RANDOM 90 mg/dL (74-106); POTASSIUM,K 4.4 mmol/L (3.5-5.1); SODIUM,NA 140 mmol/L (136-145)
--- NOTE | 2021-04-03 14:15 | PCM.PN ---
- General Info Date of Service: 04/03/21 Subjective Update: Patient states reduced tenderness of the left oblique cellulitic area. Patient denies fever, chills. - Review of Systems General: Denies: Fever, Chills Pulmonary: Denies: Shortness of Breath, Cough Cardiovascular: Denies: Palpitations, Dyspnea on Exertion, Edema Gastrointestinal: Denies: Abdominal Pain, Decreased Appetite, Diarrhea, Nausea, Vomiting Neurological: Denies: Confusion - Patient Data Vitals - Most Recent: Last Vital Signs Temp 98.4 F 04/03/21 04:00 Pulse 97 04/03/21 04:00 Resp 18 04/03/21 04:00 BP 113/72 04/03/21 04:00 Pulse Ox 97 04/03/21 04:00 Weight - Most Recent: 211 lb 10.3 oz I&O - Last 24 Hours: Intake & Output 04/02/21 04/03/21 04/03/21 22:59 06:59 14:59 Intake Total 1000 Balance 1000 Lab Results Last 24 Hours: Laboratory Results - last 24 hr 04/02/21 04/03/21 04/03/21 Range/Units 16:23 05:25 05:25 WBC 7.22 (4.0-11.0) K/uL RBC 4.06 L (4.30-5.90) M/uL Hgb 11.8 L (12.0-16.0) g/dL Hct 36.1 (36.0-46.0) % MCV 88.9 (80.0-98.0) fL MCH 29.1 (27.0-32.0) pg MCHC 32.7 (31.0-37.0) g/dL RDW Std Deviation 42.1 (28.0-62.0) fl RDW Coeff of Nadege 13 (11.0-15.0) % Plt Count 204 (150-400) K/uL MPV 11.20 (7.40-12.00) fL Neut % (Auto) 62.6 (48.0-80.0) % Lymph % (Auto) 25.2 (16.0-40.0) % Mayes % (Auto) 9.1 (0.0-15.0) % Eos % (Auto) 3.0 (0.0-7.0) % Baso % (Auto) 0.1 (0.0-1.5) % Neut # (Auto) 4.5 (1.4-5.7) K/uL Lymph # (Auto) 1.8 (0.6-2.4) K/uL Mayes # (Auto) 0.7 (0.0-0.8) K/uL Eos # (Auto) 0.2 (0.0-0.7) K/uL Baso # (Auto) 0.0 (0.0-0.1) K/uL Nucleated RBC % 0.0 /100WBC Nucleated RBCs # 0 K/uL Sodium 140 (136-145) mmol/L Potassium 4.4 (3.5-5.1) mmol/L Chloride 103 (98-107) mmol/L Carbon Dioxide 23.5 (21.0-32.0) mmol/L BUN 10 (7.0-18.0) mg/dL Creatinine 0.8 (0.6-1.0) mg/dL Est Cr Clr Drug Dosing 99.01 mL/min Estimated GFR (MDRD) > 60.0 ml/min Glucose 90 (74-106) mg/dL Calcium 8.4 L (8.5-10.1) mg/dL Vancomycin Trough 10.9 H (5.0-10.0) ug/mL Marcio Results Last 24 Hours: Microbiology 04/01/21 12:14 Aerobic Blood Culture - Preliminary Blood - Venous NO GROWTH AFTER 2 DAYS Anaerobic Blood Culture - Preliminary NO GROWTH AFTER 2 DAYS 04/01/21 11:45 Aerobic Blood Culture - Preliminary Blood - Venous - Lab Draw NO GROWTH AFTER 2 DAYS Anaerobic Blood Culture - Preliminary NO GROWTH AFTER 2 DAYS Med Orders - Current: Current Medications Acetaminophen (Acetaminophen 325 Mg Tab) 650 mg PO Q4H PRN PRN Reason: Pain (Mild 1-3)/fever Last Admin: 04/02/21 20:20 Dose: 650 mg Documented by: Diphenhydramine HCl (Diphenhydramine 25 Mg Cap) 25 mg PO ONETIME PRN PRN Reason: Insomnia Last Admin: 04/02/21 21:10 Dose: 25 mg Documented by: Enoxaparin Sodium (Enoxaparin 40 Mg/0.4 Ml Syringe) 40 mg SUBCUT Q24H [facility] Last Admin: 04/02/21 18:00 Dose: 40 mg Documented by: Clindamycin Phosphate (Cleocin In D5w 600 Mg/50 Ml) 50 mls @ 100 mls/hr IV Q8H [facility] Last Admin: 04/03/21 12:22 Dose: 100 mls/hr Documented by: Vancomycin HCl 1.75 gm/ Premix 350 mls @ 175 mls/hr IV Q8H [facility] Last Admin: 04/03/21 09:04 Dose: 175 mls/hr Documented by: Influenza Virus Vaccine (Flu Vacc [id number](6mos Up)/Pf 60 Mcg/0.5 Ml Syringe) 60 mcg IM .ONCE ONE Stop: 04/05/21 11:16 Lorazepam (Lorazepam 1 Mg Tab) 0.5 mg PO ONETIME PRN PRN Reason: Anxiety Last Admin: 04/02/21 00:08 Dose: 0.5 mg Documented by: Ondansetron HCl (Ondansetron 4 Mg/2 Ml Sdv) 4 mg IVPUSH Q4H PRN PRN Reason: Nausea/Vomiting Last Admin: 04/01/21 17:26 Dose: 4 mg Documented by: Trazodone HCl (Trazodone 50 Mg Tab) 50 mg PO BEDTIME PRN PRN Reason: Sleep Last Admin: 04/03/21 00:31 Dose: 50 mg Documented by: Vancomycin HCl (Pharmacy To Dose - Vancomycin) 1 dose .XX ASDIRECTED [facility] Discontinued Medications Sodium Chloride (Normal Saline) 1,000 mls @ 999 mls/hr IV BOLUS ONE Stop: 04/01/21 12:52 Last Admin: 04/01/21 12:27 Dose: 999 mls/hr Documented by: Sodium Chloride (Normal Saline) 1,000 mls @ 999 mls/hr IV STAT ONE Stop: 04/01/21 12:52 Last Admin: 04/01/21 12:27 Dose: 999 mls/hr Documented by: Clindamycin Phosphate 600 mg/ (Premix) 50 mls @ 100 mls/hr IV ONETIME ONE Stop: 04/01/21 12:23 Last Admin: 04/01/21 12:30 Dose: 100 mls/hr Documented by: Clindamycin Phosphate 600 mg/ (Sodium Chloride) 54 mls @ 100 mls/hr IV Q8H [facility] Last Admin: 04/01/21 20:28 Dose: Not Given Documented by: Vancomycin HCl 1.5 gm/ Premix 300 mls @ 200 mls/hr IV Q8H [facility] Last Admin: 04/02/21 18:36 Dose: Not Given Documented by: Influenza Virus Vaccine (Pharmacy To Dose - Influenza Vaccine) 1 each IM ONE TIME ONE Stop: 04/02/21 11:00 Iopamidol (Iopamidol 755 Mg/Ml 500 Ml Multipack Bottle) 100 ml IVPUSH ONETIME STA Stop: 04/01/21 13:31 Last Admin: 04/01/21 13:30 Dose: 100 ml Documented by: Iopamidol (Iopamidol 755 Mg/Ml 500 Ml Multipack Bottle) 100 ml IVPUSH ONETIME STA Stop: 04/01/21 13:59 Ketorolac Tromethamine (Ketorolac 30 Mg/Ml Sdv) 30 mg IVPUSH ONETIME ONE Stop: 04/01/21 11:56 Last Admin: 04/01/21 12:33 Dose: Not Given Documented by: - Exam General: Alert, Oriented Lungs: Clear to Auscultation, Normal Respiratory Effort Cardiovascular: Regular Rate, Regular Rhythm GI/Abdominal Exam: Soft, Non-Tender, No Distention, Other (Decreased tenderness on palpation over right oblique cellulitic area. Reduce redness and swelling) Extremities: No Pedal Edema Psy/Mental Status: Alert - Patient Data Lab Results Last 24 hrs: Laboratory Results - last 24 hr 04/02/21 04/03/21 04/03/21 Range/Units 16:23 05:25 05:25 WBC 7.22 (4.0-11.0) K/uL RBC 4.06 L (4.30-5.90) M/uL Hgb 11.8 L (12.0-16.0) g/dL Hct 36.1 (36.0-46.0) % MCV 88.9 (80.0-98.0) fL MCH 29.1 (27.0-32.0) pg MCHC 32.7 (31.0-37.0) g/dL RDW Std Deviation 42.1 (28.0-62.0) fl RDW Coeff of Nadege 13 (11.0-15.0) % Plt Count 204 (150-400) K/uL MPV 11.20 (7.40-12.00) fL Neut % (Auto) 62.6 (48.0-80.0) % Lymph % (Auto) 25.2 (16.0-40.0) % Mayes % (Auto) 9.1 (0.0-15.0) % Eos % (Auto) 3.0 (0.0-7.0) % Baso % (Auto) 0.1 (0.0-1.5) % Neut # (Auto) 4.5 (1.4-5.7) K/uL Lymph # (Auto) 1.8 (0.6-2.4) K/uL Mayes # (Auto) 0.7 (0.0-0.8) K/uL Eos # (Auto) 0.2 (0.0-0.7) K/uL Baso # (Auto) 0.0 (0.0-0.1) K/uL Nucleated RBC % 0.0 /100WBC Nucleated RBCs # 0 K/uL Sodium 140 (136-145) mmol/L Potassium 4.4 (3.5-5.1) mmol/L Chloride 103 (98-107) mmol/L Carbon Dioxide 23.5 (21.0-32.0) mmol/L BUN 10 (7.0-18.0) mg/dL Creatinine 0.8 (0.6-1.0) mg/dL Est Cr Clr Drug Dosing 99.01 mL/min Estimated GFR (MDRD) > 60.0 ml/min Glucose 90 (74-106) mg/dL Calcium 8.4 L (8.5-10.1) mg/dL Vancomycin Trough 10.9 H (5.0-10.0) ug/mL Result Diagrams: 04/03/21 05:25 04/03/21 05:25 Marcio Results Last 24 hrs: Microbiology 04/01/21 12:14 Aerobic Blood Culture - Preliminary Blood - Venous NO GROWTH AFTER 2 DAYS Anaerobic Blood Culture - Preliminary NO GROWTH AFTER 2 DAYS 04/01/21 11:45 Aerobic Blood Culture - Preliminary Blood - Venous - Lab Draw NO GROWTH AFTER 2 DAYS Anaerobic Blood Culture - Preliminary NO GROWTH AFTER 2 DAYS Sepsis Event Note - Evaluation Sepsis Screening Result: No Definite Risk - Focused Exam Vital Signs: Vital Signs Temp Pulse Resp BP Pulse Ox 04/03/21 04:00 98.4 F 97 18 113/72 97 - Problem List & Annotations (1) delivery delivered SNOMED Code(s): 112769494 Code(s): O82 - ENCOUNTER FOR DELIVERY WITHOUT INDICATION Status: Acute Current Visit: No (2) Cellulitis SNOMED Code(s): 540273474 Code(s): L03.90 - CELLULITIS, UNSPECIFIED Status: Acute Current Visit: Yes Qualifiers: Site of cellulitis: trunk Site of cellulitis of trunk: abdominal wall Qualified Code(s): L03.311 - Cellulitis of abdominal wall - Problem List Review Problem List Initiated/Reviewed/Updated: Yes - My Orders Last 24 Hours: My Active Orders 04/02/21 17:30 VANCOmycin 1.75 GM/350 ML 1.75 gm Premix Bag 1 bag IV Q8H 04/02/21 21:00 diphenhydrAMINE [Benadryl] 25 mg PO ONETIME PRN 04/04/21 05:11 BASIC METABOLIC PANEL,BMP [CHEM] AM CBC WITH AUTO DIFF [HEME] AM - Plan Plan:: Cellulitis of the right abdominal oblique area- Resume IV Vancomycin, IV clindamycin 600mg TID Zofran 4mg q4hr nausea/vomiting, tylenol fever/headache Patient eating and drinking well, IV fluids as needed Lovenox q24hr Patient will be discharged tomorrow on oral clindamycin.
[2021-04-03] MEDS: Enoxaparin 40 MG/0.4 ML Syringe SUBCUT SCH (18:15)
[2021-04-04] MEDS: VANCOmycin 1.75 GM/350 ML 1.75 GM in Premix Bag 1 BAG IV SCH ×2 (01:13→10:05)
[2021-04-04] MEDS: traZODone 50 MG Tab PO PRN (01:18)
[2021-04-04] MEDS: Clindamycin Phosphate in D5W 50 ML IV SCH ×2 (03:42→12:26)
[2021-04-04 07:43] LABS: BLOOD UREA NITROGEN,BUN 10 mg/dL (7.0-18.0); CARBON DIOXIDE,CO2 26.6 mmol/L (21.0-32.0); CHLORIDE,CL 104 mmol/L (98-107); GLUCOSE RANDOM 96 mg/dL (74-106); POTASSIUM,K 4.3 mmol/L (3.5-5.1); SODIUM,NA 143 mmol/L (136-145)
[2021-04-04] MEDS: Acetaminophen 325 MG Tab PO PRN (08:14)
--- NOTE | 2021-04-04 09:36 | PCM.DCSUM1 ---
Discharge Summary - Discharge Data Discharge Disposition: Home, Self-Care 01 Condition: Good - Referral to Home Health Primary Care Physician: Steven Palma MD - Discharge Diagnosis/Problem(s) (1) delivery delivered SNOMED Code(s): 509369368 ICD Code: O82 - ENCOUNTER FOR DELIVERY WITHOUT INDICATION Status: Acute Current Visit: No (2) Cellulitis SNOMED Code(s): 859885800 ICD Code: L03.90 - CELLULITIS, UNSPECIFIED Status: Acute Current Visit: Yes Qualifiers: Site of cellulitis: trunk Site of cellulitis of trunk: abdominal wall Qualified Code(s): L03.311 - Cellulitis of abdominal wall - Patient Instructions Diet: Usual Diet as Tolerated Activity: As Tolerated Notify Provider of: Fever, Increased Pain, Swelling and Redness Other/Special Instructions: Report any signs of increasing fever, chills redness, tenderness, swelling at the cellulitis site to your primary care physician. - Discharge Plan Prescriptions/Med Rec: Clindamycin HCl 600 mg PO TID #42 capsule Home Medications: Home Meds Vit Calc,Iron,Folic [ Vitamins] 1 each PO DAILY 03/18/18 [History] valACYclovir HCl [valACYclovir] 1,000 mg PO BID PRN 03/18/18 [History] Albuterol Sulfate [Albuterol Sulfate Hfa] 2 inh IH QID PRN 04/02/21 [History] Sulfamethoxazole/Trimethoprim [Bactrim Ds Tablet] 1 tab PO BID 04/02/21 [History] Clindamycin HCl 600 mg PO TID #42 capsule 04/04/21 [Rx] Patient Handouts: Cellulitis, Adult, [id number] Referrals: Steven Palma MD [Primary Care Provider] - Denisha Jack MD [Resident] - 04/09/21 2:00 pm - Patient Data Vitals - Most Recent: Last Vital Signs Temp 97.6 F 04/04/21 07:52 Pulse 75 04/04/21 07:52 Resp 16 04/04/21 07:52 BP 112/71 04/04/21 07:52 Pulse Ox 96 04/04/21 03:43 Weight - Most Recent: 211 lb 10.3 oz I&O - Last 24 hours: Intake & Output 04/03/21 04/04/21 04/04/21 22:59 06:59 14:59 Intake Total 860 Balance 860 Lab Results - Last 24 hrs: Laboratory Results - last 24 hr 04/03/21 04/04/21 04/04/21 Range/Units 17:11 06:53 06:53 WBC 6.17 (4.0-11.0) K/uL RBC 4.15 L (4.30-5.90) M/uL Hgb 12.0 (12.0-16.0) g/dL Hct 36.4 (36.0-46.0) % MCV 87.7 (80.0-98.0) fL MCH 28.9 (27.0-32.0) pg MCHC 33.0 (31.0-37.0) g/dL RDW Std Deviation 41.5 (28.0-62.0) fl RDW Coeff of Nadege 13 (11.0-15.0) % Plt Count 209 (150-400) K/uL MPV 10.70 (7.40-12.00) fL Neut % (Auto) 57.7 (48.0-80.0) % Lymph % (Auto) 28.7 (16.0-40.0) % [place] % (Auto) 9.7 (0.0-15.0) % Eos % (Auto) 3.7 (0.0-7.0) % Baso % (Auto) 0.2 (0.0-1.5) % Neut # (Auto) 3.6 (1.4-5.7) K/uL Lymph # (Auto) 1.8 (0.6-2.4) K/uL [place] # (Auto) 0.6 (0.0-0.8) K/uL Eos # (Auto) 0.2 (0.0-0.7) K/uL Baso # (Auto) 0.0 (0.0-0.1) K/uL Nucleated RBC % 0.0 /100WBC Nucleated RBCs # 0 K/uL Sodium 143 (136-145) mmol/L Potassium 4.3 (3.5-5.1) mmol/L Chloride 104 (98-107) mmol/L Carbon Dioxide 26.6 (21.0-32.0) mmol/L BUN 10 (7.0-18.0) mg/dL Creatinine 0.7 (0.6-1.0) mg/dL Est Cr Clr Drug Dosing 113.16 mL/min Estimated GFR (MDRD) > 60.0 ml/min Glucose 96 (74-106) mg/dL Calcium 8.6 (8.5-10.1) mg/dL Vancomycin Trough 16.1 H (5.0-10.0) ug/mL JEZ Results - Last 24 hrs: Microbiology 04/01/21 12:14 Aerobic Blood Culture - Preliminary Blood - Venous NO GROWTH AFTER 2 DAYS Anaerobic Blood Culture - Preliminary NO GROWTH AFTER 2 DAYS 04/01/21 11:45 Aerobic Blood Culture - Preliminary Blood - Venous - Lab Draw NO GROWTH AFTER 2 DAYS Anaerobic Blood Culture - Preliminary NO GROWTH AFTER 2 DAYS Med Orders - Current: Current Medications Acetaminophen (Acetaminophen 325 Mg Tab) 650 mg PO Q4H PRN PRN Reason: Pain (Mild 1-3)/fever Last Admin: 04/04/21 08:14 Dose: 650 mg Documented by: Diphenhydramine HCl (Diphenhydramine 25 Mg Cap) 25 mg PO ONETIME PRN PRN Reason: Insomnia Last Admin: 04/02/21 21:10 Dose: 25 mg Documented by: Enoxaparin Sodium (Enoxaparin 40 Mg/0.4 Ml Syringe) 40 mg SUBCUT Q24H [facility] Last Admin: 04/03/21 18:15 Dose: 40 mg Documented by: Clindamycin Phosphate (Cleocin In D5w 600 Mg/50 Ml) 50 mls @ 100 mls/hr IV Q8H [facility] Last Admin: 04/04/21 03:42 Dose: 100 mls/hr Documented by: Vancomycin HCl 1.75 gm/ Premix 350 mls @ 175 mls/hr IV Q8H [facility] Last Admin: 04/04/21 01:13 Dose: 175 mls/hr Documented by: Influenza Virus Vaccine (Flu Vacc [id number](6mos Up)/Pf 60 Mcg/0.5 Ml Syringe) 60 mcg IM .ONCE ONE Stop: 04/05/21 11:16 Lorazepam (Lorazepam 1 Mg Tab) 0.5 mg PO ONETIME PRN PRN Reason: Anxiety Last Admin: 04/02/21 00:08 Dose: 0.5 mg Documented by: Ondansetron HCl (Ondansetron 4 Mg/2 Ml Sdv) 4 mg IVPUSH Q4H PRN PRN Reason: Nausea/Vomiting Last Admin: 04/01/21 17:26 Dose: 4 mg Documented by: Trazodone HCl (Trazodone 50 Mg Tab) 50 mg PO BEDTIME PRN PRN Reason: Sleep Last Admin: 04/04/21 01:18 Dose: 50 mg Documented by: Vancomycin HCl (Pharmacy To Dose - Vancomycin) 1 dose .XX ASDIRECTED [facility] Discontinued Medications Sodium Chloride (Normal Saline) 1,000 mls @ 999 mls/hr IV BOLUS ONE Stop: 04/01/21 12:52 Last Admin: 04/01/21 12:27 Dose: 999 mls/hr Documented by: Sodium Chloride (Normal Saline) 1,000 mls @ 999 mls/hr IV STAT ONE Stop: 04/01/21 12:52 Last Admin: 04/01/21 12:27 Dose: 999 mls/hr Documented by: Clindamycin Phosphate 600 mg/ (Premix) 50 mls @ 100 mls/hr IV ONETIME ONE Stop: 04/01/21 12:23 Last Admin: 04/01/21 12:30 Dose: 100 mls/hr Documented by: Clindamycin Phosphate 600 mg/ (Sodium Chloride) 54 mls @ 100 mls/hr IV Q8H [facility] Last Admin: 04/01/21 20:28 Dose: Not Given Documented by: Vancomycin HCl 1.5 gm/ Premix 300 mls @ 200 mls/hr IV Q8H [facility] Last Admin: 04/02/21 18:36 Dose: Not Given Documented by: Influenza Virus Vaccine (Pharmacy To Dose - Influenza Vaccine) 1 each IM ONETIME ONE Stop: 04/02/21 11:00 Iopamidol (Iopamidol 755 Mg/Ml 500 Ml Multipack Bottle) 100 ml IVPUSH ONETIME STA Stop: 04/01/21 13:31 Last Admin: 04/01/21 13:30 Dose: 100 ml Documented by: Iopamidol (Iopamidol 755 Mg/Ml 500 Ml Multipack Bottle) 100 ml IVPUSH ONETIME STA Stop: 04/01/21 13:59 Ketorolac Tromethamine (Ketorolac 30 Mg/Ml Sdv) 30 mg IVPUSH ONETIME ONE Stop: 04/01/21 11:56 Last Admin: 04/01/21 12:33 Dose: Not Given Documented by:
--- NOTE | 2021-04-04 12:21 | US ---
INDICATION: Cellulitis and possible abscess in the right lower quadrant anterior abdominal wall. TECHNIQUE: Grayscale ultrasound examination of the right lower quadrant anterior abdominal wall. COMPARISON: None. FINDINGS: Evaluation of the right lower quadrant anterior abdominal wall demonstrates a 10 x 3 x 3 mm hypoechoic tract in the skin and subcutaneous fat but no abscess. IMPRESSION: 10 x 3 x 3 mm hypoechoic tract in the skin and subcutaneous fat of the right lower quadrant anterior abdominal wall but no abscess evident. Dictated by Leobardo Moy MD @ 04/04/2021 12:18:59 PM (Electronically Signed)
[2021-04-04 12:50] VITALS: BP 95/72; PULSE 76
--- NOTE | 2021-04-04 14:03 | PCM.DCSUM1 ---
Discharge Summary - Hospital Course Free Text/Narrative:: 35-year-old female with no significant cardiac, respiratory past medical history presents to emergency room today with worsening pain, tenderness overlying the right oblique region which began roughly 4 days ago. Patient states she was previously seen in the ER and prescribed Bactrim for her infection. Patient has taken 3 doses of Bactrim but states her infection was getting worse. Patient then reported to the walk-in clinic for further evaluation and was recommended to revisit ER. Patient states developing a fever last night, with temperature 103 F. Patient also reports feeling fatigue for the past 2 days. Admission patient denied fever, chills, chest pain, shortness of breath. States decreased appetite, nausea with no vomiting, right-sided abdominal/oblique pain. Laboratory on admission, WBC 1.29, hemoglobin 15.8, hematocrit 41.4, platelet 191, sodium 135, potassium 4.2, BUN 11, creatinine 0.9, lactic acid 1.4, Covid negative. Abdomen pelvis CT, Skin thickening with dense subcutaneous inflammation in the right flank. No fluid collection to suggest abscess. No intra-abdominal inflammation, free fluid or free air. Patient given IV fluids and one dose of clindamycin in the ED. Admitted for cellulitis. Patient was treated with IV vancomycin and IV clindamycin 600 mg 3 times daily. Prior to discharge patient's swelling, tenderness, erythema resolved significantly. Patient did have a small opening which was draining purulent material. Ultrasound of the cellulitic area was performed and demonstrated a 10 X 3 X 3 mm hypoechoic tract in the skin and subcutaneous fat but no abscess evident. Patient was discharged home on clindamycin 600 mg 3 times daily X 7 days. Patient advised to report to the emergency department if experiencing fever, chills, increased swelling, pain, erythema at the area of cellulitis. Patient u nderstands and agrees. - Discharge Data Discharge Date: 04/04/21 Discharge Disposition: Home, Self-Care 01 Condition: Good - Referral to Home Health Primary Care Physician: Steven Palma MD - Discharge Diagnosis/Problem(s) (1) delivery delivered SNOMED Code(s): 833446848 ICD Code: O82 - ENCOUNTER FOR DELIVERY WITHOUT INDICATION Status: Acute Current Visit: No (2) Cellulitis SNOMED Code(s): 874275349 ICD Code: L03.90 - CELLULITIS, UNSPECIFIED Status: Acute Current Visit: Yes Qualifiers: Site of cellulitis: trunk Site of cellulitis of trunk: abdominal wall Qualified Code(s): L03.311 - Cellulitis of abdominal wall - Patient Instructions Diet: Usual Diet as Tolerated Activity: As Tolerated Notify Provider of: Fever, Increased Pain, Swelling and Redness Other/Special Instructions: Report any signs of increasing fever, chills redness, tenderness, swelling at the cellulitis site to your primary care physician. - Discharge Plan Prescriptions/Med Rec: Clindamycin HCl 600 mg PO TID #42 capsule Home Medications: Home Meds Vit Calc,Iron,Folic [ Vitamins] 1 each PO DAILY 03/18/18 [History] valACYclovir HCl [valACYclovir] 1,000 mg PO BID PRN 03/18/18 [History] Albuterol Sulfate [Albuterol Sulfate Hfa] 2 inh IH QID PRN 04/02/21 [History] Sulfamethoxazole/Trimethoprim [Bactrim Ds Tablet] 1 tab PO BID 04/02/21 [History] Clindamycin HCl 600 mg PO TID #42 capsule 04/04/21 [Rx] Patient Handouts: Cellulitis, Adult, [id number] Referrals: Steven Palma MD [Primary Care Provider] - Denisha Jack MD [Resident] - 04/09/21 2:00 pm - Discharge Summary/Plan Comment DC Time >30 min.: Yes Total # of Minutes for Discharge Time: 31 - General Info Date of Service: 04/04/21 Subjective Update: Patient states she feels well, feels that the infected region is less swollen, less painful, less red than the previous night. Patient states she had some purulent material draining from the area last night. Patient states she would like to go home. - Review of Systems General: Denies: Fever, Chills Pulmonary: Denies: Shortness of Breath Cardiovascular: Denies: Chest Pain, Dyspnea on Exertion, Orthopnea, Edema Gastrointestinal: Denies: Abdominal Pain, Decreased Appetite, Diarrhea, Nausea, Vomiting Neurological: Denies: Confusion, Dizziness - Patient Data Vitals - Most Recent: Last Vital Signs Temp 97.4 F 04/04/21 12:00 Pulse 76 04/04/21 12:00 Resp 16 04/04/21 12:00 BP 95/72 04/04/21 12:00 Pulse Ox 96 04/04/21 03:43 Weight - Most Recent: 211 lb 10.3 oz I&O - Last 24 hours: Intake & Output 04/03/21 04/04/21 04/04/21 22:59 06:59 14:59 Intake Total 860 Balance 860 Lab Results - Last 24 hrs: Laboratory Results - last 24 hr 04/03/21 04/04/21 04/04/21 Range/Units 17:11 06:53 06:53 WBC 6.17 (4.0-11.0) K/uL RBC 4.15 L (4.30-5.90) M/uL Hgb 12.0 (12.0-16.0) g/dL Hct 36.4 (36.0-46.0) % MCV 87.7 (80.0-98.0) fL MCH 28.9 (27.0-32.0) pg MCHC 33.0 (31.0-37.0) g/dL RDW Std Deviation 41.5 (28.0-62.0) fl RDW Coeff of Nadege 13 (11.0-15.0) % Plt Count 209 (150-400) K/uL MPV 10.70 (7.40-12.00) fL Neut % (Auto) 57.7 (48.0-80.0) % Lymph % (Auto) 28.7 (16.0-40.0) % Eagle % (Auto) 9.7 (0.0-15.0) % Eos % (Auto) 3.7 (0.0-7.0) % Baso % (Auto) 0.2 (0.0-1.5) % Neut # (Auto) 3.6 (1.4-5.7) K/uL Lymph # (Auto) 1.8 (0.6-2.4) K/uL [place] # (Auto) 0.6 (0.0-0.8) K/uL Eos # (Auto) 0.2 (0.0-0.7) K/uL Baso # (Auto) 0.0 (0.0-0.1) K/uL Nucleated RBC % 0.0 /100WBC Nucleated RBCs # 0 K/uL Sodium 143 (136-145) mmol/L Potassium 4.3 (3.5-5.1) mmol/L Chloride 104 (98-107) mmol/L Carbon Dioxide 26.6 (21.0-32.0) mmol/L BUN 10 (7.0-18.0) mg/dL Creatinine 0.7 (0.6-1.0) mg/dL Est Cr Clr Drug Dosing 113.16 mL/min Estimated GFR (MDRD) > 60.0 ml/min Glucose 96 (74-106) mg/dL Calcium 8.6 (8.5-10.1) mg/dL Vancomycin Trough 16.1 H (5.0-10.0) ug/mL JEZ Results - Last 24 hrs: Microbiology 04/01/21 12:14 Aerobic Blood Culture - Preliminary Blood - Venous NO GROWTH AFTER 3 DAYS Anaerobic Blood Culture - Preliminary NO GROWTH AFTER 3 DAYS 04/01/21 11:45 Aerobic Blood Culture - Preliminary Blood - Venous - Lab Draw NO GROWTH AFTER 3 DAYS Anaerobic Blood Culture - Preliminary NO GROWTH AFTER 3 DAYS Med Orders - Current: Current Medications Acetaminophen (Acetaminophen 325 Mg Tab) 650 mg PO Q4H PRN PRN Reason: Pain (Mild 1-3)/fever Last Admin: 04/04/21 08:14 Dose: 650 mg Documented by: Diphenhydramine HCl (Diphenhydramine 25 Mg Cap) 25 mg PO ONETIME PRN PRN Reason: Insomnia Last Admin: 04/02/21 21:10 Dose: 25 mg Documented by: Enoxaparin Sodium (Enoxaparin 40 Mg/0.4 Ml Syringe) 40 mg SUBCUT Q24H [facility] Last Admin: 04/03/21 18:15 Dose: 40 mg Documented by: Clindamycin Phosphate (Cleocin In D5w 600 Mg/50 Ml) 50 mls @ 100 mls/hr IV Q8H [facility] Last Admin: 04/04/21 12:26 Dose: 100 mls/hr Documented by: Vancomycin HCl 1.75 gm/ Premix 350 mls @ 175 mls/hr IV Q8H [facility] Last Admin: 04/04/21 10:05 Dose: 175 mls/hr Documented by: Influenza Virus Vaccine (Flu Vacc [id number](6mos Up)/Pf 60 Mcg/0.5 Ml Syringe) 60 mcg IM .ONCE ONE Stop: 04/05/21 11:16 Lorazepam (Lorazepam 1 Mg Tab) 0.5 mg PO ONETIME PRN PRN Reason: Anxiety Last Admin: 04/02/21 00:08 Dose: 0.5 mg Documented by: Ondansetron HCl (Ondansetron 4 Mg/2 Ml Sdv) 4 mg IVPUSH Q4H PRN PRN Reason: Nausea/Vomiting Last Admin: 04/01/21 17:26 Dose: 4 mg Documented by: Trazodone HCl (Trazodone 50 Mg Tab) 50 mg PO BEDTIME PRN PRN Reason: Sleep Last Admin: 04/04/21 01:18 Dose: 50 mg Documented by: Vancomycin HCl (Pharmacy To Dose - Vancomycin) 1 dose .XX ASDIRECTED [facility] Discontinued Medications Sodium Chloride (Normal Saline) 1,000 mls @ 999 mls/hr IV BOLUS ONE Stop: 04/01/21 12:52 Last Admin: 04/01/21 12:27 Dose: 999 mls/hr Documented by: Sodium Chloride (Normal Saline) 1,000 mls @ 999 mls/hr IV STAT ONE Stop: 04/01/21 12:52 Last Admin: 04/01/21 12:27 Dose: 999 mls/hr Documented by: Clindamycin Phosphate 600 mg/ (Premix) 50 mls @ 100 mls/hr IV ONETIME ONE Stop: 04/01/21 12:23 Last Admin: 04/01/21 12:30 Dose: 100 mls/hr Documented by: Clindamycin Phosphate 600 mg/ (Sodium Chloride) 54 mls @ 100 mls/hr IV Q8H [facility] Last Admin: 04/01/21 20:28 Dose: Not Given Documented by: Vancomycin HCl 1.5 gm/ Premix 300 mls @ 200 mls/hr IV Q8H [facility] Last Admin: 04/02/21 18:36 Dose: Not Given Documented by: Influenza Virus Vaccine (Pharmacy To Dose - Influenza Vaccine) 1 each IM ON ETIME ONE Stop: 04/02/21 11:00 Iopamidol (Iopamidol 755 Mg/Ml 500 Ml Multipack Bottle) 100 ml IVPUSH ONETIME STA Stop: 04/01/21 13:31 Last Admin: 04/01/21 13:30 Dose: 100 ml Documented by: Iopamidol (Iopamidol 755 Mg/Ml 500 Ml Multipack Bottle) 100 ml IVPUSH ONETIME STA Stop: 04/01/21 13:59 Ketorolac Tromethamine (Ketorolac 30 Mg/Ml Sdv) 30 mg IVPUSH ONETIME ONE Stop: 04/01/21 11:56 Last Admin: 04/01/21 12:33 Dose: Not Given Documented by: - Exam General: Reports: Alert, Oriented Lungs: Reports: Clear to Auscultation, Normal Respiratory Effort Cardiovascular: Reports: Regular Rate, Regular Rhythm GI/Abdominal Exam: Soft, Non-Tender, No Distention, Other (small 1-2mm opening noted in right lower abdomen, inside the area of resolving cellulitis draning purulent material. Redness, tenderness have improved significantly since admission. )
--- NOTE | 2021-04-05 11:18 | PCM.EKG ---
#1 Interpretation EKG Date: 04/01/21 Time: 15:19 Rhythm: NSR Rate (Beats/Min): 107 [place]: Normal P-Wave: Present QRS: Normal ST-T: Normal QT: Normal Comparison: NA - No Prior EKG EKG Interpretation Comments: Sinus Tachycardia
== END 2021-04-04 15:30 | disposition home or self-care (01) | DRG 383 ==
LOC: MW.ED 11:23 → MW.MS 14:39
PROVIDERS: ADMIT Internal Medicine; ATTEND Internal Medicine
DX: L03.311 Cellulitis of abdominal wall (principal); K21.9 Gastro-esophageal reflux disease without esophagitis; J45.909 Unspecified asthma, uncomplicated; F41.9 Anxiety disorder, unspecified; F32.9 Major depressive disorder, single episode, unspecified; Z20.822 Contact with and (suspected) exposure to COVID-19
CPT/HCPCS: 36415; 74177; 74177-26; 76705; 76705-26; 80048; 80053; 80202; 83605; 84703; 85025; 87040; 87070; 87077; 87186; 87205; 87804; 90686; 93005; 96365; 99285-25; A9270-GY; J1650; J2405; J3370; J3490; J7030; Q9967; U0002